=== PATIENT | male | born 1970 | race African-American/Black ===

== ENCOUNTER 2024-02-03 09:05 | Emergency (ER) | payer OTHER ==
[2024-02-03 09:27] VITALS: RESP 18; TEMP 97.8
--- NOTE | 2024-02-03 09:35 | ED ---
General Adult HPI - General Chief complaint: Extremity Injury, Lower Stated complaint: infection Time Seen by Provider: 02/03/24 09:14 Source: patient Mode of arrival: wheelchair Limitations: no limitations - History of Present Illness Initial comments: Dictation was produced using Piktochart dictation software. please excuse any grammatical, word or spelling errors. Chief Complaint: 53-year-old male presents to the emergency department for lower extremity rash and pain History of Present Illness: Patient is a 53-year-old male he went for routine appointment for chronic wound to the right great toe. He has history of left lower extremity amputation. Patient was seen at the wound clinic he was evaluated. Patient complained to wound clinic that he had a painful rash to his posterior distal right thigh. Patient has history of arterial insufficiency being treated and evaluated by vascular surgery. Patient notices painful rash few days ago. Wound clinic doctor wanted to prescribe patient antibiotics and discharged home however patient preferred rather to come to the emergency department for evaluation. Patient Nuys any fever, chills or night sweats. Denies any acute symptoms in his right lower extremity The ROS documented in this emergency department record has been reviewed and confirmed by me. Those systems with pertinent positive or negative responses have been documented in the HPI. All other systems are other negative and/or noncontributory. - Related Data Home Medications Medication Instructions Recorded Confirmed Gabapentin [Neurontin] 400 mg PO TID 02/03/24 02/03/24 INSULIN LISPRO (For Pump) [humaLOG 0.01 units SQ-PUMP CONTINUOUS 02/03/24 02/03/24 (For Pump)] Sodium Chloride 0.9% Irrigatio 1 dose IRRIGATION DAILY 02/03/24 02/03/24 [Saline 0.9% Irrigation Bottle] lisinopriL [Zestril] 40 mg PO DAILY 02/03/24 02/03/24 oxyCODONE HCL [Roxicodone] 5 mg PO BID PRN 02/03/24 02/03/24 Previous Rx's Medication Instructions Recorded Cephalexin [Keflex] 500 mg PO Q6HR 5 Days #20 cap 02/03/24 Allergies Allergy/AdvReac Type Severity Reaction Status Date / Time No Known Allergies Allergy Verified 02/03/24 10:29 Review of Systems ROS Statement: Those systems with pertinent positive or pertinent negative responses have been documented in the HPI. ROS Other: All systems not noted in ROS Statement are negative. Past Medical History Past Medical History: Diabetes Mellitus History of Any Multi-Drug Resistant Organisms: None Reported Additional Past Surgical History / Comment(s): dcrotal rectal abscess i/. Bka left leg. Past Psychological History: No Psychological Hx Reported Smoking Status: Never smoker Past Alcohol Use History: None Reported Past Drug Use History: Marijuana General Exam - General Exam Comments Initial Comments: PHYSICAL EXAM: General Impression: Alert and oriented x3, not in acute distress HEENT: Normocephalic atraumatic, extra-ocular movements intact, pupils equal and reactive to light bilaterally, mucous membranes moist. Cardiovascular: Heart regular rate and rhythm Chest: Able to complete full sentences, no retractions, no tachypnea Abdomen: abdomen soft, non-tender, non-distended, no organomegaly Musculoskeletal: Amputation of the left lower extremity, chronic wound to the right great toe Motor: no focal deficits noted Neurological: CN II-XII grossly intact, no focal motor or sensory deficits noted Skin: I indurated rash measuring approximately 10 x 10 cm over the posterior distal thigh just over the distal attachments of the hamstring, no popliteal pain, no calf pain or calf swelling.. Rash is painful to palpation Psych: Normal affect and mood Limitations: no limitations Course Vital Signs 02/03/24 02/03/24 09:06 09:44 Temperature 97.8 F Pulse Rate 77 79 Respiratory 18 18 Rate Blood Pressure 158/101 163/98 O2 Sat by Pulse 100 99 Oximetry Medical Decision Making - Medical Decision Making Was pt. sent in by a medical professional or institution (, PA, CIGARETTE PACKER, urgent care, hospital, or long term...) When possible be specific @ -No Did you speak to anyone other than the patient for history (EMS, parent, family, police, friend...)? What history was obtained from this source @ -No Did you review nursing and triage notes (agree or disagree)? Why? @ -I reviewed and agree with nursing and triage notes Were old charts reviewed (outside hosp., previous admission, EMS record, old EKG, old radiological studies, urgent care reports/EKG's, long term records)? Report findings @ -No old charts were reviewed Differential Diagnosis (chest pain, altered mental status, abdominal pain women, abdominal pain men, vaginal bleeding, musculoskeletal, weakness, fever, dyspnea, syncope, headache, dizziness, GI bleed, back pain, seizure, CVA, palpa tations, mental health)? @ -Cellulitis, DVT, Sellers's cyst EKG interpreted by me (3pts min.). @ -None done X-rays interpreted by me (1pt min.). @ -None done CT interpreted by me (1pt min.). @ -None done U/S interpreted by me (1pt. min.). @ -Ultrasound lower extremity shows no DVT, no soft tissue abscess What testing was considered but not performed or refused? (CT, X-rays, U/S, labs)? Why? @ -None What meds were considered but not given or refused? Why? @ -None Did you discuss the management of the patient with other professionals (professionals i.e. , PA, CIGARETTE PACKER, lab, RT, psych nurse, geriatric social work professor, night order selector, teacher, major gifts officer, director of casework)? Give summary @ -No Was smoking cessation discussed for >3mins.? @ -No Was critical care preformed (if so, how long)? @ -No Were there social determinants of health that impacted care today? How? (Homelessness, low income, unemployed, alcoholism, drug addiction, transportation, low edu. Level, literacy, decrease access to med. care, long term, rehab)? @ -No Was there de-escalation of care discussed even if they declined (Discuss DNR or withdrawal of care, Hospice)? DNR status @ -No What co-morbidities impacted this encounter? (DM, HTN, Smoking, COPD, CAD, Cancer, CVA, ARF, Chemo, Hep., AIDS, mental health diagnosis, sleep apnea, mo rbid obesity)? @ -None Was patient admitted / discharged? Hospital course, mention meds given and r oute, prescriptions, significant lab abnormalities, going to OR and other pertinent info. @ -53-year-old male presents emergency department with clinical presentation suspicious for skin cellulitis. Vital signs upon arrival are within acceptable limits. Laboratory evaluation obtained. No leukocytosis. CRP within acceptable limits. Patient is hyperglycemic. Patient given insulin. Patient has a history of diabetes mellitus. Patient given prescription for Keflex discharge. Advised close follow-up with primary care doctor. Undiagnosed new problem with uncertain prognosis? @ -No Drug Therapy requiring intensive monitoring for toxicity (Heparin, Nitro, Insulin, Cardizem)? @ -No Were any procedures done? @ -No Diagnosis/symptom? Acute, or Chronic, or Acute on Chronic? Uncomplicated (without systemic symptoms) or Complicated (systemic symptoms)? @ -Cellulitis Side effects of treatment? @ -No Exacerbation, Progression, or Severe Exacerbation? @ -No Poses a threat to life or bodily function? How? (Chest pain, [place], [place], pneumonia, PE, COPD, DKA, ARF, appy, cholecystitis, CVA, Diverticulitis, Homicidal, Suicidal, threat to staff... and all critical care pts) @ -yes - Lab Data Result diagrams: 02/03/24 09:54 02/03/24 09:54 Lab Results 02/03/24 02/03/24 Range/Units 09:54 09:54 WBC 9.3 (3.8-10.6) k/uL RBC 4.08 L (4.30-5.90) m/uL Hgb 12.6 L (13.0-17.5) gm/dL Hct 39.8 (39.0-53.0) % MCV 97.3 (80.0-100.0) fL MCH 30.9 (25.0-35.0) pg MCHC 31.8 (31.0-37.0) g/dL RDW 13.5 (11.5-15.5) % Plt Count 256 (150-450) k/uL MPV 11.2 Neutrophils % 71 % Lymphocytes % 17 % Monocytes % 8 % Eosinophils % 1 % Basophils % 0 % Neutrophils # 6.7 (1.3-7.7) k/uL Lymphocytes # 1.6 (1.0-4.8) k/uL Monocytes # 0.7 (0-1.0) k/uL Eosinophils # 0.1 (0-0.7) k/uL Basophils # 0.0 (0-0.2) k/uL Sodium 131 L (137-145) mmol/L Potassium 4.6 (3.5-5.1) mmol/L Chloride 100 (98-107) mmol/L Carbon Dioxide 27 (22-30) mmol/L Anion Gap 4 mmol/L BUN 22 H (9-20) mg/dL Creatinine 0.91 (0.66-1.25) mg/dL Est GFR (CKD-EPI)AfAm >90 (>60 ml/min/1.73 sqM) Est GFR (CKD-EPI)NonAf >90 (>60 ml/min/1.73 sqM) Glucose 428 H (74-99) mg/dL Calcium 8.5 (8.4-10.2) mg/dL C-Reactive Protein 1.9 H (<1.0) mg/dL Disposition Clinical Impression: Cellulitis Disposition: HOME SELF-CARE Condition: Fair Instructions (If sedation given, give patient instructions): Cellulitis (ED) Prescriptions: Cephalexin [Keflex] 500 mg PO Q6HR 5 Days #20 cap Is patient prescribed a controlled substance at d/c from ED?: No Referrals: Ivet Lui [Primary Care Provider] - 1-2 days Time of Disposition: 12:08
[2024-02-03 10:42] LABS: Basophils % (A) 0 %; Eosinophils # (A) 0.1 k/uL (0-0.7); Eosinophils % (A) 1 %; HCT 39.8 % (39.0-53.0); HGB 12.6 gm/dL (13.0-17.5); Lymphocytes # (A) 1.6 k/uL (1.0-4.8); Lymphocytes % (A) 17 %; MCH 30.9 pg (25.0-35.0); MCHC 31.8 g/dL (31.0-37.0); MCV 97.3 fL (80.0-100.0); Mean Platelet Volume 11.2; Monocytes # (A) 0.7 k/uL (0-1.0); Monocytes % (A) 8 %; Neutrophils # (A) 6.7 k/uL (1.3-7.7); Neutrophils % (A) 71 %; Platelet Count 256 k/uL (150-450); RBC 4.08 m/uL (4.30-5.90); RDW 13.5 % (11.5-15.5); WBC 9.3 k/uL (3.8-10.6)
--- NOTE | 2024-02-03 10:52 | US ---
EXAMINATION TYPE: US extremity nonvascular ltd RT DATE OF EXAM: 02/03/2024 COMPARISON: NONE CLINICAL INDICATION: Male, 53 years old with history of please scan painful area for cellulitis/absce ss; Right leg pain swelling and redness behind knee and back of thigh Edema seen at patient's area of concern IMPRESSION: In the subcutaneous soft tissues, there is edema
--- NOTE | 2024-02-03 10:58 | US ---
EXAMINATION TYPE: US venous doppler duplex LE RT DATE OF EXAM: 02/03/2024 10:23 AM COMPARISON: NONE CLINICAL INDICATION: Male, 53 years old with history of also scan painful area for cellulitis/abscess /DVT; Right leg swelling and redness behind knee and back of thigh SIDE PERFORMED: Right TECHNIQUE: The right lower extremity deep venous system is examined utilizing real time linear array sonography with graded compression, doppler sonography and color-flow sonography. VESSELS IMAGED: Common Femoral Vein Deep Femoral Vein Greater Saphenous Vein * Femoral Vein Popliteal Vein Small Saphenous Vein * Proximal Calf Veins (* superficial vessels) Right Leg: Appears negative for DVT Multiple lymph nodes seen right groin IMPRESSION: Grayscale, color doppler, spectral doppler imaging performed of the deep veins of the lo wer extremities. There is normal flow, compressibility, vascular waveforms. Negative for right lower extremity DVT. Several prominent right inguinal lymph nodes
[2024-02-03 11:08] LABS: African American GFR (CKD) >90 (>60 ml/min/1.73 sqM); Anion Gap 4 mmol/L; Blood Urea Nitrogen 22 mg/dL (9-20); C Reactive Protein 1.9 mg/dL (<1.0); Calcium 8.5 mg/dL (8.4-10.2); Carbon Dioxide 27 mmol/L (22-30); Chloride 100 mmol/L (98-107); Glucose 428 mg/dL (74-99); Non-African American GFR(CKD) >90 (>60 ml/min/1.73 sqM); Potassium 4.6 mmol/L (3.5-5.1); Sodium 131 mmol/L (137-145)
[2024-02-03 12:29] LABS: Glucose,Whole Blood 379 mg/dL (70-110)
[2024-02-03] MEDS: INSULIN REGULAR 100 UNIT/ML VIAL (IV) IV ONE (12:29)
[2024-02-03 13:13] VITALS: BP 147/87; PULSE 78
[2024-02-03 17:21] LABS: Erythrocyte Sedimentation Rate 93 mm/Hr (0-20)
== END 2024-02-03 12:52 | disposition home or self-care (01) ==
LOC: EC 09:05
DX: L03.90 Cellulitis, unspecified (principal)
CPT/HCPCS: 36415; 80048; 85025; 85652; 86140; 96374; 99284

== ENCOUNTER → 2024-02-10 | Outpatient (CLI) | payer OTHER ==
--- NOTE | 2024-02-10 10:18 | XR ---
EXAMINATION TYPE: XR foot complete RT DATE OF EXAM: 02/10/2024 COMPARISON: NONE HISTORY: Swelling TECHNIQUE: Three views are submitted. FINDINGS: Diffuse osteopenia. There is a soft tissue irregularity adjacent to the first digit which could repre sent an area of ulceration. Lucency in all of the cortex of the distal margin proximal phalanx suspic ious for osteomyelitis. No acute fracture. Minimum moderate hypertrophic arthropathy first MTP. Bony density along the medial margin of the cune iform bone likely on the basis of prior trauma. Vascular calcifications are noted. Hammertoe deformit ies and arthropathy of the DIP joint of the second through fifth digits. IMPRESSION: Correlate for cellulitis with possible soft tissue ulcer adjacent to the first digit. Fin dings are suspicious for early osteomyelitis of the proximal phalanx first digit.
== END | disposition home or self-care (01) ==
LOC: RADXRMAIN 09:51
PROVIDERS: ATTEND Family Medicine
DX: M79.89 Other specified soft tissue disorders (principal); E11.621 Type 2 diabetes mellitus with foot ulcer; L97.513 Non-pressure chronic ulcer of other part of right foot with necrosis of muscle; E11.59 Type 2 diabetes mellitus with other circulatory complications; I70.235 Atherosclerosis of native arteries of right leg with ulceration of other part of foot; I96 Gangrene, not elsewhere classified; I82.401 Acute embolism and thrombosis of unspecified deep veins of right lower extremity

== ENCOUNTER → 2024-02-17 | Outpatient (CLI) | payer OTHER ==
[2024-02-17 16:19] LABS: ALT 34 U/L (10-49); AST 25 U/L (14-35); Albumin 3.4 g/dL (3.8-4.9); Albumin/Globulin Ratio 1.26 Ratio (1.60-3.17); Alkaline Phosphatase 402 U/L (41-126); Basophils # (A) 0.06 X 10*3/uL (0.00-0.10); Basophils % (A) 0.8 %; Blood Urea Nitrogen 16.6 mg/dL (9.0-27.0); C Reactive Protein <0.30 mg/dL (0.00-0.80); Calcium 9.2 mg/dL (8.7-10.3); Carbon Dioxide 29.3 mmol/L (21.6-31.8); Chloride 97 mmol/L (96-109); Eosinophils # (A) 0.06 X 10*3/uL (0.04-0.35); Eosinophils % (A) 0.8 %; Globulin 2.7 g/dL (1.6-3.3); Glucose 432 mg/dL (70-110); HCT 39.5 % (39.6-50.0); HGB 12.4 g/dL (13.0-17.0); Lymphocytes # (A) 2.65 X 10*3/uL (0.90-5.00); Lymphocytes % (A) 35.1 %; MCH 29.7 pg (27.0-32.0); MCHC 31.4 g/dL (32.0-37.0); MCV 94.7 FL (80.0-97.0); Mean Platelet Volume 13.9 FL (9.5-12.2); Monocytes % (A) 6.6 %; NRBC Per 100 WBC 0 X 10*3/uL (0.00-0.01); Neutrophils # (A) 4.25 X 10*3/uL (1.80-7.70); Neutrophils % (A) 56.4 %; Platelet Count 215 X 10*3/uL (140-440); Potassium 4.7 mmol/L (3.5-5.5); RBC 4.17 X 10*6/uL (4.40-5.60); RDW 13.1 % (11.5-14.5); Sodium 136 mmol/L (135-145); Total Bilirubin <0.2 mg/dL (0.3-1.2); Total Protein 6.1 g/dL (6.2-8.2); WBC 7.54 X 10*3/uL (4.50-10.00)
[2024-02-17 16:32] LABS: Erythrocyte Sedimentation Rate 31 mm/Hr (0-20)
[2024-02-17 16:44] LABS: Prealbumin 23.9 mg/dL (18.0-42.0)
== END | disposition home or self-care (01) ==
LOC: LABWHC1 10:04
PROVIDERS: ATTEND Family Medicine
DX: E11.621 Type 2 diabetes mellitus with foot ulcer (principal); L97.513 Non-pressure chronic ulcer of other part of right foot with necrosis of muscle; I70.235 Atherosclerosis of native arteries of right leg with ulceration of other part of foot; I96 Gangrene, not elsewhere classified; E11.59 Type 2 diabetes mellitus with other circulatory complications; I82.401 Acute embolism and thrombosis of unspecified deep veins of right lower extremity
CPT/HCPCS: 36415; 80053; 83036; 84134; 85025; 85652; 86140

== ENCOUNTER 2024-03-16 12:06 | Emergency (ER) | payer OTHER ==
[2024-03-16 12:27] VITALS: RESP 18
--- NOTE | 2024-03-16 12:59 | ED ---
Recheck HPI - General Chief Complaint: Recheck/Abnormal Lab/Rx Stated Complaint: Hypertension Time Seen by Provider: 03/16/24 12:28 Source: patient, RN notes reviewed, old records reviewed Mode of arrival: wheelchair Limitations: no limitations - History of Present Illness Initial Comments: This is a 53-year-old male to the ER for evaluation today. Patient presents today for evaluation regards to severely elevated blood pressure. Patient's blood pressure is improving here in the emergency department both in triage and now at bedside, patient has no complaints no headache chest pain shortness of breath abdominal pain. Patient can be given his home medications here in the emergency department MD Complaint: other (Elevated blood pressure) -: unknown Symptoms Since Prior Visit: no new symptoms Context: planned re-check Associated Symptoms: none Treatments Prior to Arrival: other (0) - Related Data Home Medications Medication Instructions Recorded Confirmed Gabapentin [Neurontin] 400 mg PO TID 02/03/24 02/03/24 INSULIN LISPRO (For Pump) [humaLOG 0.01 units SQ-PUMP CONTINUOUS 02/03/24 02/03/24 (For Pump)] Sodium Chloride 0.9% Irrigatio 1 dose IRRIGATION DAILY 02/03/24 02/03/24 [Saline 0.9% Irrigation Bottle] lisinopriL [Zestril] 40 mg PO DAILY 02/03/24 02/03/24 oxyCODONE HCL [Roxicodone] 5 mg PO BID PRN 02/03/24 02/03/24 Previous Rx's Medication Instructions Recorded Cephalexin [Keflex] 500 mg PO Q6HR 5 Days #20 cap 02/03/24 Allergies Allergy/AdvReac Type Severity Reaction Status Date / Time No Known Allergies Allergy Verified 02/03/24 10:29 Review of Systems ROS Statement: Those systems with pertinent positive or pertinent negative responses have been documented in the HPI. ROS Other: All systems not noted in ROS Statement are negative. Past Medical History Past Medical History: Diabetes Mellitus, Hypertension History of Any Multi-Drug Resistant Organisms: None Reported Additional Past Surgical History / Comment(s): dcrotal rectal abscess i/. Bka left leg. Past Psychological History: No Psychological Hx Reported Smoking Status: Never smoker Past Alcohol Use History: None Reported Past Drug Use History: Marijuana General Exam Limitations: no limitations General appearance: alert, in no apparent distress Head exam: Present: atraumatic, normocephalic, normal inspection Eye exam: Present: normal appearance, PERRL, EOMI. Absent: scleral icterus, conjunctival injection, periorbital swelling ENT exam: Present: normal exam, mucous membranes moist Neck exam: Present: normal inspection. Absent: tenderness, meningismus, lymphadenopathy Respiratory exam: Present: normal lung sounds bilaterally. Absent: respiratory distress, wheezes, rales, rhonchi, stridor Cardiovascular Exam: Present: regular rate, normal rhythm, normal heart sounds. Absent: systolic murmur, diastolic murmur, rubs, gallop, clicks GI/Abdominal exam: Present: soft, normal bowel sounds. Absent: distended, tenderness, guarding, rebound, rigid Extremities exam: Present: normal inspection, full ROM, normal capillary refill. Absent: tenderness, pedal edema, joint swelling, calf tenderness Back exam: Present: normal inspection Neurological exam: Present: alert, oriented X3, CN II-XII intact Psychiatric exam: Present: normal affect, normal mood Skin exam: Present: warm, dry, intact, normal color. Absent: rash Course Vital Signs 03/16/24 03/16/24 12:22 13:05 Temperature 98.1 F 98.0 F Pulse Rate 87 88 Respiratory 18 18 Rate Blood Pressure 169/83 161/104 O2 Sat by Pulse 98 100 Oximetry - Reevaluation(s) Reevaluation #1: Medical records reviewed Reevaluation #2: Patient symptoms improving Reevaluation #3: Patient informed of results and questions answered Reevaluation #4: Was pt. sent in by a medical professional or institution (, PA, SOIL FERTILITY EXTENSION SPECIALIST, urgent care, hospital, or shelter...) When possible be specific @ -no Did you speak to anyone other than the patient for history (EMS, parent, family, police, friend...)? What history was obtained from this source @ -no Did you review nursing and triage notes (agree or disagree)? Why? @ -agree Are old charts reviewed (outside hosp., previous admission, EMS record, old EKG, old radiological studies, urgent care reports/EKG's, shelter records)? Report findings @ -yes Differential Diagnosis (chest pain, altered mental status, abdominal pain women, abdominal pain men, vaginal bleeding, weakness, fever, dyspnea, syncope, headache, dizziness, GI bleed, back pain, seizure, CVA, palpatations, mental health, musculoskeletal)? @ -prior EKG interpreted by me (3pts min.). @ -no X-rays interpreted by me (1pt min.). @ -no CT interpreted by me (1pt min.). @ -no U/S interpreted by me (1pt. min.). @ -no What testing was considered but not performed or refused? (CT, X-rays, U/S, labs)? Why? @ -none What meds were considered but not given or refused? Why? @ -none Did you discuss the management of the patient with other professionals (professionals i.e. Dr., PA, SOIL FERTILITY EXTENSION SPECIALIST, lab, RT, psych nurse, social service manager, imaging specialist, teacher, branch officer, telehealth case manager)? Give summary @ -no Was smoking cessation discussed for >3mins.? @ -no Was critical care preformed (if so, how long)? @ -no Were there social determinants of health that impacted care today? How? (Homelessness, low income, unemployed, alcoholism, drug addiction, transportation, low edu. Level, literacy, decrease access to med. care, [facility], rehab)? @ -none Was there de-escalation of care discussed even if they declined (Discuss DNR or withdrawal of care, Hospice)? DNR status @ -no What co-morbidities impacted this encounter? (DM, HTN, Smoking, COPD, CAD, Cancer, CVA, ARF, Chemo, Hep., AIDS, mental health diagnosis, sleep apnea, morbid obesity)? @ -none Was patient admitted / discharged? Hospital course, mention meds given and route, prescriptions, significant lab abnormalities, going to OR and other pertinent info. @ - 53 male for evaluation of outpatient abnormal blood pressure. Patient's blood pressure normalized here in the emergency department, given blood pressure medication here, no complaints of headache chest pain shortness of breath abdominal pain patient can be discharged home Discharge Undiagnosed new problem with uncertain prognosis? @ -no Drug Therapy requiring intensive monitoring for toxicity (Heparin, Nitro, Insulin, Cardizem)? @ -no Were any procedures done? @ -no Diagnosis/symptom? @ -Hypertension Acute, or Chronic, or Acute on Chronic? @ -Acute Uncomplicated (without systemic symptoms) or Complicated (systemic symptoms)? @ -Complicated Side effects of treatment? @ -no Exacerbation, Progression, or Severe Exacerbation? @ -exacerbation Poses a threat to life or bodily function? How? (Chest pain, [place], [place], pneumonia, PE, COPD, DKA, ARF, appy, cholecystitis, CVA, Diverticulitis, Homicidal, Suicidal, threat to staff... and all critical care pts) @ -yes with severe vital sign abnormality Medical Decision Making - Medical Decision Making 53 male for evaluation of outpatient abnormal blood pressure. Patient's blood pressure normalized here in the emergency department, given blood pressure medication here, no complaints of headache chest pain shortness of breath abdominal pain patient can be discharged home Disposition Clinical Impression: Hypertension Disposition: HOME SELF-CARE Condition: Good Instructions (If sedation given, give patient instructions): Hypertension (ED) Is patient prescribed a controlled substance at d/c from ED?: No Referrals: Brodie Vaughn MD [Primary Care Provider] - 1-2 days
[2024-03-16] MEDS: cloNIDine HCL 0.1 MG TAB PO STA (13:04)
[2024-03-16 13:13] VITALS: BP 161/104; PULSE 88; TEMP 98
== END 2024-03-16 13:20 | disposition home or self-care (01) ==
LOC: EC 12:06
DX: I10 Essential (primary) hypertension (principal); Z79.4 Long term (current) use of insulin
CPT/HCPCS: 99283

== ENCOUNTER 2024-04-19 09:25 | Emergency (ER) | payer OTHER ==
[2024-04-19 09:29] VITALS: TEMP 98.2
[2024-04-19] MEDS: LABETALOL 5 MG/ML VIAL MDV IVP STA (09:49)
[2024-04-19 09:59] LABS: Basophils # (A) 0.1 k/uL (0-0.2); Basophils % (A) 1 %; Eosinophils # (A) 0.1 k/uL (0-0.7); Eosinophils % (A) 2 %; HCT 43.2 % (39.0-53.0); HGB 13.6 gm/dL (13.0-17.5); Lymphocytes # (A) 2.1 k/uL (1.0-4.8); Lymphocytes % (A) 29 %; MCH 29.9 pg (25.0-35.0); MCHC 31.5 g/dL (31.0-37.0); MCV 94.8 fL (80.0-100.0); Mean Platelet Volume 10.4; Monocytes # (A) 0.5 k/uL (0-1.0); Monocytes % (A) 6 %; Neutrophils # (A) 4.5 k/uL (1.3-7.7); Neutrophils % (A) 60 %; Platelet Count 257 k/uL (150-450); RBC 4.56 m/uL (4.30-5.90); RDW 14.1 % (11.5-15.5); WBC 7.5 k/uL (3.8-10.6)
--- NOTE | 2024-04-19 10:24 | ED ---
General Adult HPI - General Chief complaint: Recheck/Abnormal Lab/Rx Stated complaint: Hypertension, nausea Time Seen by Provider: 04/19/24 09:30 Source: patient, RN notes reviewed Mode of arrival: ambulatory Limitations: no limitations - History of Present Illness Initial comments: 53-year-old male presents emergency department with chief complaint of h ypertension. Patient went to his hyperbaric chamber treatment and was noted to have hypertension he states he has been out of his lisinopril for 1 week as his PCP moved away. Patient denies any current symptoms including chest pain shortness of breath headache dizziness nausea vomiting. - Related Data Home Medications Medication Instructions Recorded Confirmed Gabapentin [Neurontin] 400 mg PO TID 02/03/24 04/19/24 INSULIN LISPRO (For Pump) [humaLOG 0.01 units SQ-PUMP CONTINUOUS 02/03/24 04/19/24 (For Pump)] lisinopriL [Zestril] 40 mg PO DAILY 02/03/24 04/19/24 oxyCODONE HCL [Roxicodone] 5 mg PO BID PRN 02/03/24 04/19/24 Allergies Allergy/AdvReac Type Severity Reaction Status Date / Time hydromorphone [From Dilaudid] AdvReac Confusion Verified 04/19/24 13:00 Review of Systems ROS Statement: Those systems with pertinent positive or pertinent negative responses have been documented in the HPI. ROS Other: All systems not noted in ROS Statement are negative. Past Medical History Past Medical History: Diabetes Mellitus, Hypertension History of Any Multi-Drug Resistant Organisms: None Reported Additional Past Surgical History / Comment(s): dcrotal rectal abscess i/. Bka left leg. Past Psychological History: No Psychological Hx Reported Smoking Status: Never smoker Past Alcohol Use History: None Reported Past Drug Use History: Marijuana General Exam Limitations: no limitations General appearance: alert, in no apparent distress Head exam: Present: atraumatic, normocephalic, normal inspection Eye exam: Present: normal appearance, PERRL, EOMI. Absent: scleral icterus, conjunctival injection, periorbital swelling ENT exam: Present: normal exam, normal oropharynx, mucous membranes moist Neck exam: Present: normal inspection, full ROM. Absent: tenderness, meningismus, lymphadenopathy Respiratory exam: Present: normal lung sounds bilaterally. Absent: respiratory distress, wheezes, rales, rhonchi, stridor Cardiovascular Exam: Present: regular rate, normal rhythm, normal heart sounds. Absent: systolic murmur, diastolic murmur, rubs, gallop, clicks Course Vital Signs 04/19/24 04/19/24 04/19/24 09:27 10:21 11:39 Temperature 98.2 F Pulse Rate 91 91 102 H Respiratory 18 14 16 Rate Blood Pressure 204/112 225/119 201/104 O2 Sat by Pulse 100 98 100 Oximetry 04/19/24 04/19/24 04/19/24 11:54 12:21 13:11 Temperature Pulse Rate 99 101 H 101 H Respiratory 18 18 16 Rate Blood Pressure 203/110 185/81 162/81 O2 Sat by Pulse 100 100 99 Oximetry EKG Findings - EKG Comments: EKG Findings:: EKG performed at 9: 42 sinus rhythm with short VT rate of 89 VT 117 QRS 85 QT/QTc 359/405 - EKG Results: EKG: interpreted by LORAINED Medical Decision Making - Medical Decision Making Was pt. sent in by a medical professional or institution (SANTANA Santoyo, SCALE MANAGER, urgent care, hospital, or fpc...) When possible be specific @ -Hyperbaric treatment physician Did you speak to anyone other than the patient for history (EMS, parent, family, police, friend...)? What history was obtained from this source @ -No Did you review nursing and triage notes (agree or disagree)? Why? @ -I reviewed and agree with nursing and triage notes Were old charts reviewed (outside hosp., previous admission, EMS record, old EKG, old radiological studies, urgent care reports/EKG's, fpc records)? Report findings @ -No old charts were reviewed Differential Diagnosis (chest pain, altered mental status, abdominal pain women, abdominal pain men, vaginal bleeding, weakness, fever, dyspnea, syncope, headache, dizziness, GI bleed, back pain, seizure, CVA, palpatations, mental health, musculoskeletal)? @ -Hypertension acute kidney injury diabetes EKG interpreted by me (3pts min.). @ -As above X-rays interpreted by me (1pt min.). @ -None done CT interpreted by me (1pt min.). @ -None done U/S interpreted by me (1pt. min.). @ -None done What testing was considered but not performed or refused? (CT, X-rays, U/S, labs)? Why? @ -None What meds were considered but not given or refused? Why? @ -None Did you discuss the management of the patient with other professionals (professionals i.e. , PA, SCALE MANAGER, lab, RT, psych nurse, social work administrator, supervisor game farm, teacher, chief mechanical officer, field nurse case manager)? Give summary @ -No Was smoking cessation discussed for >3mins.? @ -No Was critical care preformed (if so, how long)? @ -No Were there social determinants of health that impacted care today? How? (Home lessness, low income, unemployed, alcoholism, drug addiction, transportation, low edu. Level, literacy, decrease access to med. care, long term, rehab)? @ -No Was there de-escalation of care discussed even if they declined (Discuss DNR or withdrawal of care, Hospice)? DNR status @ -No What co-morbidities impacted this encounter? (DM, HTN, Smoking, COPD, CAD, Cancer, CVA, ARF, Chemo, Hep., AIDS, mental health diagnosis, sleep apnea, morbid obesity)? @ -None Was patient admitted / discharged? Hospital course, mention meds given and route, prescriptions, significant lab abnormalities, going to OR and other pertinent info. @ -Patient has a history of hypertension was out of his medication patient's PCP was contacted and appointment was made medication refills were sent patient was given hydralazine, labetalol in the emergency department. Undiagnosed new problem with uncertain prognosis? @ -No Drug Therapy requiring intensive monitoring for toxicity (Heparin, Nitro, Insulin, Cardizem)? @ -No Were any procedures done? @ -No Diagnosis/symptom? @ -Hypertension, Medication refill Acute, or Chronic, or Acute on Chronic? @ -Acute Uncomplicated (without systemic symptoms) or Complicated (systemic symptoms)? @ -Uncomplicated Side effects of treatment? @ -No Exacerbation, Progression, or Severe Exacerbation? @ -No Poses a threat to life or bodily function? How? (Chest pain, [place], [place], pneumonia, PE, COPD, DKA, ARF, appy, cholecystitis, CVA, Diverticulitis, Homicidal, Suicidal, threat to staff... and all critical care pts) @ -No - Lab Data Result diagrams: 04/19/24 09:55 04/19/24 09:55 Lab Results 04/19/24 04/19/24 Range/Units 09:55 09:55 WBC 7.5 (3.8-10.6) k/uL RBC 4.56 (4.30-5.90) m/uL Hgb 13.6 (13.0-17.5) gm/dL Hct 43.2 (39.0-53.0) % MCV 94.8 (80.0-100.0) fL MCH 29.9 (25.0-35.0) pg MCHC 31.5 (31.0-37.0) g/dL RDW 14.1 (11.5-15.5) % Plt Count 257 (150-450) k/uL MPV 10.4 Neutrophils % 60 % Lymphocytes % 29 % Monocytes % 6 % Eosinophils % 2 % Basophils % 1 % Neutrophils # 4.5 (1.3-7.7) k/uL Lymphocytes # 2.1 (1.0-4.8) k/uL Monocytes # 0.5 (0-1.0) k/uL Eosinophils # 0.1 (0-0.7) k/uL Basophils # 0.1 (0-0.2) k/uL Sodium 135 L (137-145) mmol/L Potassium 4.0 (3.5-5.1) mmol/L Chloride 99 (98-107) mmol/L Carbon Dioxide 29 (22-30) mmol/L Anion Gap 7 mmol/L BUN 33 H (9-20) mg/dL Creatinine 1.17 (0.66-1.25) mg/dL Est GFR (CKD-EPI)AfAm 83 (>60 ml/min/1.73 sqM) Est GFR (CKD-EPI)NonAf 72 (>60 ml/min/1.73 sqM) Glucose 370 H (74-99) mg/dL Calcium 9.1 (8.4-10.2) mg/dL Total Bilirubin 0.3 (0.2-1.3) mg/dL AST 37 (17-59) U/L ALT 30 (4-49) U/L Alkaline Phosphatase 299 H (38-126) U/L Total Protein 7.0 (6.3-8.2) g/dL Albumin 3.8 (3.5-5.0) g/dL Disposition Clinical Impression: Hypertension, Encounter for medication refill, Hyperglycemia Disposition: HOME SELF-CARE Condition: Stable Instructions (If sedation given, give patient instructions): Hypertension (ED) Additional Instructions: Please return to the Emergency Department if symptoms worsen or any other concerns. Is patient prescribed a controlled substance at d/c from ED?: No Referrals: Ivet Lui [Primary Care Provider] - 05/03/24 9:15 am (ENMANUEL Vaughn will be your new provider. Refills of your medications will be sent to [facility] pharmacy on [address] ) Forms: Area PCPs Time of Disposition: 12:33
[2024-04-19 10:25] LABS: ALT 30 U/L (4-49); AST 37 U/L (17-59); African American GFR (CKD) 83 (>60 ml/min/1.73 sqM); Albumin 3.8 g/dL (3.5-5.0); Alkaline Phosphatase 299 U/L (38-126); Anion Gap 7 mmol/L; Blood Urea Nitrogen 33 mg/dL (9-20); Calcium 9.1 mg/dL (8.4-10.2); Carbon Dioxide 29 mmol/L (22-30); Chloride 99 mmol/L (98-107); Glucose 370 mg/dL (74-99); Non-African American GFR(CKD) 72 (>60 ml/min/1.73 sqM); Sodium 135 mmol/L (137-145); Total Bilirubin 0.3 mg/dL (0.2-1.3)
[2024-04-19] MEDS: hydrALAZINE HCL 20 MG/ML 1 ML VIAL IVP STA ×2 (10:53→11:51)
[2024-04-19] MEDS: INSULIN REGULAR 100 UNIT/ML VIAL (IV) IV ONE (10:55)
[2024-04-19 12:22] VITALS: PULSE 101
[2024-04-19] MEDS: ONDANSETRON 4 MG/2 ML VIAL IVP STA (13:05)
[2024-04-19] MEDS: lisinopriL 20 MG TAB PO STA (13:05)
[2024-04-19 13:12] VITALS: BP 162/81; RESP 16
== END 2024-04-19 13:12 | disposition home or self-care (01) ==
LOC: EC 09:25
DX: Z76.0 Encounter for issue of repeat prescription (principal); I10 Essential (primary) hypertension; E78.5 Hyperlipidemia, unspecified; Z79.899 Other long term (current) drug therapy; Z88.8 Allergy status to other drugs, medicaments and biological substances
CPT/HCPCS: 36415; 93005; 80053; 85025; 99284; 96374; 96375 ×2; 96376; J0360; J2405; J1920

== ENCOUNTER 2024-05-09 09:17 | Inpatient (IN) | payer OTHER ==
[2024-05-09] MEDS ORDERED: VANCOMYCIN IV PER PHARMACY 1 EACH MISC MISCELLANE PRN (09:54)
[2024-05-09] MEDS: SODIUM CHLORIDE 0.9% 1,000 ML IV STA (12:04)
[2024-05-09] MEDS: VANCOMYCIN 1,500 MG in SODIUM CHLORIDE 0.9% 500 ML 500 ML IVPB STA (12:04)
[2024-05-09 12:05] LABS: Basophils # (A) 0.1 k/uL (0-0.2); Basophils % (A) 0 %; Eosinophils # (A) 0.2 k/uL (0-0.7); Eosinophils % (A) 2 %; HCT 32.5 % (39.0-53.0); Hypochromasia Slight; Lymphocytes # (A) 1.8 k/uL (1.0-4.8); Lymphocytes % (A) 15 %; MCH 31.3 pg (25.0-35.0); MCHC 32.6 g/dL (31.0-37.0); MCV 96.2 fL (80.0-100.0); Mean Platelet Volume 9.5; Monocytes # (A) 0.8 k/uL (0-1.0); Monocytes % (A) 6 %; Neutrophils % (A) 75 %; Platelet Count 394 k/uL (150-450); RBC 3.38 m/uL (4.30-5.90); RDW 13.8 % (11.5-15.5); WBC 12.1 k/uL (3.8-10.6)
--- NOTE | 2024-05-09 12:16 | ED ---
General Adult HPI - General Chief complaint: Skin/Abscess/Foreign Body Stated complaint: Infection right toe Time Seen by Provider: 05/09/24 09:48 Source: patient, RN/MD, RN notes reviewed, old records reviewed Mode of arrival: ambulatory Limitations: no limitations - History of Present Illness Initial comments: Patient is a 53-year-old male with past medical history remarkable for left lower extremity amputation, diabetes, hypertension, who presents emergency department complaining of right toe infection. I was notified by his infectious disease doctor at wound care clinic Dr. Stubbs who wanted him admitted on IV antibiotics and evaluated by vascular surgery. Does have a history of amputation excuse me of the left lower extremity however is now having findings concerning for either ischemic changes or infectious changes to the right big toe. It is black. This painful. Surrounding erythema. Still has movement. Still some sensation. Has been like this for at least a few days. Did not pharmacy picking tech his antibiotics after initial prescription was sent. Presents for admission. - Related Data Home Medications Medication Instructions Recorded Confirmed Gabapentin [Neurontin] 400 mg PO TID 02/03/24 05/09/24 INSULIN LISPRO (For Pump) [humaLOG 0.01 units SQ-PUMP CONTINUOUS 02/03/24 05/09/24 (For Pump)] lisinopriL [Zestril] 40 mg PO DAILY 02/03/24 05/09/24 oxyCODONE HCL [Roxicodone] 5 mg PO BID PRN 02/03/24 05/09/24 Amoxic-Pot Clav 875-125Mg 1 tab PO BID 05/09/24 05/09/24 [Augmentin 875-125] Allergies Allergy/AdvReac Type Severity Reaction Status Date / Time hydromorphone [From Dilaudid] AdvReac Confusion Verified 05/09/24 10:14 Review of Systems ROS Statement: Those systems with pertinent positive or pertinent negative responses have been documented in the HPI. Review of Systems: CONST: Denies fever EYES: Denies blurry vision ENT: Denies nasal congestion C/V: Denies Chest pain RESP: Denies shortness of breath GI: Denies abdominal pain : Denies dysuria SKIN: Endorses right great toe infection MSK: Denies joint pain. NEURO: Denies headache ROS Other: All systems not noted in ROS Statement are negative. Past Medical History Past Medical History: Diabetes Mellitus, Hypertension History of Any Multi-Drug Resistant Organisms: None Reported Additional Past Surgical History / Comment(s): dcrotal rectal abscess i/. Bka left leg. Past Psychological History: No Psychological Hx Reported Smoking Status: Never smoker Past Alcohol Use History: None Reported Past Drug Use History: Marijuana General Exam - General Exam Comments Initial Comments: General: Appears in no acute distress. HEAD: Normal with no signs of head trauma. EYES: PERRLA, EOMI, conjunctiva normal, no discharge. ENT: Hearing grossly intact, normal oropharynx. RESPIRATORY: Clear breath sounds bilaterally. No wheezes, rales, or rhonchi. C/V: Regular rate and rhythm. S1 and S2 auscultated, no edema, peripheral pulses 2+ and intact throughout ABD: Abd is soft, nontender, nondistended EXT: Left lower extremity amputation. Right great toe is black. Normal range of motion. Wound on the dorsal aspect with some purulent drainage. Concern for infectious etiology versus ischemic. SKIN: Right great toe findings described above. NEURO: Alert and oriented x 4. Limitations: no limitations Course Vital Signs 05/09/24 05/09/24 09:18 12:01 Temperature 97.9 F 98.0 F Pulse Rate 88 81 Respiratory 18 18 Rate Blood Pressure 166/93 156/96 O2 Sat by Pulse 98 98 Oximetry Medical Decision Making - Medical Decision Making Was pt. sent in by a medical professional or institution (SANTANA Santoyo, SPOKE MAKER, urgent care, hospital, or prison...) When possible be specific @ -I discussed with Dr. Stubbs who sent the patient in for admission for IV antibiotics. Did you speak to anyone other than the patient for history (EMS, parent, family, police, friend...)? What history was obtained from this source @ -No Did you review nursing and triage notes (agree or disagree)? Why? @ -I reviewed and agree with nursing and triage notes Were old charts reviewed (outside hosp., previous admission, EMS record, old EKG, old radiological studies, urgent care reports/EKG's, prison records)? Report findings @ -Reviewed our EMR for prior past medical history. Differential Diagnosis (chest pain, altered mental status, abdominal pain women, abdominal pain men, vaginal bleeding, weakness, fever, dyspnea, syncope, headache, dizziness, GI bleed, back pain, seizure, CVA, palpatations, mental health, musculoskeletal)? @ -Differential Musculoskeletal Muscular strain, contusion, ligament sprain, fracture, arthritis, septic arthrit is, bursitis, cellulitis, muscle spasm, nerve compression, DVT, arterial occlusion, herpes zoster, electrolyte abnormality, tumor.... This is not meant to be in all inclusive list EKG interpreted by me (3pts min.). @ -None done X-rays interpreted by me (1pt min.). @ -No evidence of osteomyelitis on foot x-ray CT interpreted by me (1pt min.). @ -None done U/S interpreted by me (1pt. min.). @ -None done What testing was considered but not performed or refused? (CT, X-rays, U/S, labs)? Why? @ -None What meds were considered but not given or refused? Why? @ -None Did you discuss the management of the patient with other professionals (professionals i.e. DrElmer, PA, SPOKE MAKER, lab, RT, psych nurse, neonatal social worker, forcer maker, teacher, liaison officer, immigration case worker)? Give summary @ -Discussed with Dr. Stubbs who called ahead for the patient to be admitted on IV antibiotics, evaluation by vascular surgery, as well as evaluation by infectious disease. Spoke with the admitting provider, Dr. Tejeda who accepted the admission. Was smoking cessation discussed for >3mins.? @ -No Was critical care preformed (if so, how long)? @ -No Were there social determinants of health that impacted care today? How? (Homelessness, low income, unemployed, alcoholism, drug addiction, transportation, low edu. Level, literacy, decrease access to med. care, half-way, rehab)? @ -No Was there de-escalation of care discussed even if they declined (Discuss DNR or withdrawal of care, Hospice)? DNR status @ -No What co-morbidities impacted this encounter? (DM, HTN, Smoking, COPD, CAD, Cancer, CVA, ARF, Chemo, Hep., AIDS, mental health diagnosis, sleep apnea, morbid obesity)? @ -Diabetes Was patient admitted / discharged? Hospital course, mention meds given and route, prescriptions, significant lab abnormalities, going to OR and other pertinent info. @ -Patient presents with right great toe wound versus ischemic process. Patient empirically started on vancomycin after wound cultures and blood cultures obtained. Will obtain basic labs. Patient will be admitted to the hospital. He was in agreement this plan. Vital signs within acceptable limits. States he is up-to-date on tetanus. Patient's labs remarkable for hyperglycemia which she is receiving IV fluids 4. Alk phos is elevated likely secondary to the infectious process. Patient is mildly anemic with hemoglobin 10.6. White blood cell count is elevated at 12.1. Foot x-ray reveals no evidence of osteomyelitis. At this time, I did recommend admission. Patient was in agreement this plan. Will continue with plan for vancomycin, vascular surgery consult, infectious disease consult. Patient in agreement this plan. I spoke with the admitting physician, Dr. Tejeda of [facility] who accepted the admission. Undiagnosed new problem with uncertain prognosis? @ -No Drug Therapy requiring intensive monitoring for toxicity (Heparin, Nitro, Insulin, Cardizem)? @ -No Were any procedures done? @ -No Diagnosis/symptom? @ -Right great toe wound, hyperglycemia in the setting of poorly controlled diabetes Acute, or Chronic, or Acute on Chronic? @ -Acute Uncomplicated (without systemic symptoms) or Complicated (systemic symptoms)? @ -Complicated Side effects of treatment? @ -None Exacerbation, Progression, or Severe Exacerbation] @ -No Poses a threat to life or bodily function? @ -Yes - Lab Data Result diagrams: 05/09/24 11:48 05/09/24 11:48 Lab Results 05/09/24 05/09/24 05/09/24 Range/Units 11:48 11:48 11:48 WBC 12.1 H (3.8-10.6) k/uL RBC 3.38 L (4.30-5.90) m/uL Hgb 10.6 L D (13.0-17.5) gm/dL Hct 32.5 L (39.0-53.0) % MCV 96.2 (80.0-100.0) fL MCH 31.3 (25.0-35.0) pg MCHC 32.6 (31.0-37.0) g/dL RDW 13.8 (11.5-15.5) % Plt Count 394 (150-450) k/uL MPV 9.5 Neutrophils % 75 % Lymphocytes % 15 % Monocytes % 6 % Eosinophils % 2 % Basophils % 0 % Neutrophils # 9.0 H (1.3-7.7) k/uL Lymphocytes # 1.8 (1.0-4.8) k/uL Monocytes # 0.8 (0-1.0) k/uL Eosinophils # 0.2 (0-0.7) k/uL Basophils # 0.1 (0-0.2) k/uL Hypochromasia Slight Sodium 131 L (137-145) mmol/L Potassium 5.0 (3.5-5.1) mmol/L Chloride 99 (98-107) mmol/L Carbon Dioxide 26 (22-30) mmol/L Anion Gap 6 mmol/L BUN 26 H (9-20) mg/dL Creatinine 0.89 (0.66-1.25) mg/dL Est GFR (CKD-EPI)AfAm >90 (>60 ml/min/1.73 sqM) Est GFR (CKD-EPI)NonAf >90 (>60 ml/min/1.73 sqM) Glucose 554 H* (74-99) mg/dL Plasma Lactic Acid Jam 0.7 (0.7-2.0) mmol/L Calcium 8.8 (8.4-10.2) mg/dL Total Bilirubin 0.3 (0.2-1.3) mg/dL AST 36 (17-59) U/L ALT 33 (4-49) U/L Alkaline Phosphatase 666 H (38-126) U/L Total Protein 5.9 L (6.3-8.2) g/dL Albumin 2.8 L (3.5-5.0) g/dL Disposition Clinical Impression: Wound, open, foot, Hyperglycemia Disposition: ADMITTED IP TO THIS HOSP Condition: Stable Referrals: Ivet Lui [Primary Care Provider] - 1-2 days Time of Disposition: 12:44
--- NOTE | 2024-05-09 12:18 | XR ---
EXAMINATION TYPE: XR foot limited RT DATE OF EXAM: 05/09/2024 10:41 AM CLINICAL INDICATION:Male, 53 years old with history of eval for osteomyelitis; [facility] COMPARISON: 02/10/2024 TECHNIQUE: XR foot limited RT examined in the AP, oblique, and lateral projections. FINDINGS: Soft tissue swelling without evidence of subcutaneous gas or erosion to suggest osteomyelitis. No conchis dence of any acute osseous pathology. Calcaneal Achilles enthesophyte. Multifocal degeneration change s throughout the joints of the foot with osteophyte formation and joint space narrowing. Atherosclero sis of the arterial vasculature. IMPRESSION: 1. Soft tissue swelling without evidence for osseous erosion to suggest osteomyelitis. No evidence o f acute fracture. 2. Moderate degeneration changes throughout the joints of the foot.
[2024-05-09 12:25] LABS: ALT 33 U/L (4-49); AST 36 U/L (17-59); African American GFR (CKD) >90 (>60 ml/min/1.73 sqM); Albumin 2.8 g/dL (3.5-5.0); Alkaline Phosphatase 666 U/L (38-126); Anion Gap 6 mmol/L; Blood Urea Nitrogen 26 mg/dL (9-20); Calcium 8.8 mg/dL (8.4-10.2); Carbon Dioxide 26 mmol/L (22-30); Chloride 99 mmol/L (98-107); Non-African American GFR(CKD) >90 (>60 ml/min/1.73 sqM); Sodium 131 mmol/L (137-145); Total Bilirubin 0.3 mg/dL (0.2-1.3); Total Protein 5.9 g/dL (6.3-8.2)
[2024-05-09 12:27] LABS: Glucose 554 mg/dL (74-99); HGB 10.6 gm/dL (13.0-17.5)
[2024-05-09] MEDS ORDERED: NALOXONE 0.4 MG/ML 1 ML VIAL IV PRN (12:44)
[2024-05-09] MEDS: SODIUM CHLORIDE 0.9% 1,000 ML IV SCH (13:13)
[2024-05-09 13:38] LABS: Glucose,Whole Blood 464 mg/dL (70-110)
[2024-05-09] MEDS: BACITRACIN OINT 1 EACH PACKET TOPICAL ONE (13:49)
[2024-05-09] MEDS ORDERED: DEXTROSE 50% SYRINGE 50 ML IVP PRN ×2 (14:02)
[2024-05-09] MEDS: BACITRACIN ZINC 500 UNIT/GM OINT 28.4 GM TUBE TOPICAL ONE (14:20)
[2024-05-09 14:25] LABS: Glucose,Whole Blood 424 mg/dL (70-110)
[2024-05-09] MEDS: INSULIN ASPART (NovoLOG) 100 UNIT/ML VIAL SQ ONE (14:29)
--- NOTE | 2024-05-09 15:33 | P.GSCN ---
History of Present Illness Consult date: 05/09/24 Reason for Consult: Right foot wound Requesting physician: Alvarado Mayo History of present illness: This a pleasant 53-year-old male with a history of hypertension, diabetes mellitus, and nonhealing diabetic wounds with a history of a left dfbaa-uox-qwan amputation approximately a year ago. He has a wound to his right great toe that he has had for several months and has been following with the wound clinic get ting HBO therapy. He states he went today and they were concerned the way his toe looked and he was sent to the emergency department for further evaluation and consult to infectious disease and vascular surgery. States he does have some discomfort to the top of his foot. He does not follow with a vascular surgeon and has not followed with vascular surgery and from [facility] from his prior amputation. Denies any shortness of breath, chest pain, abdominal pain, nausea or vomiting fevers or chills. Review of Systems A 14 point review systems was completed all pertinent positives and negatives as stated in the HPI. Past Medical History Past Medical History: Diabetes Mellitus, Hypertension History of Any Multi-Drug Resistant Organisms: None Reported Additional Past Surgical History / Comment(s): dcrotal rectal abscess i/. Bka left leg. Past Psychological History: No Psychological Hx Reported Smoking Status: Never smoker Past Alcohol Use History: None Reported Past Drug Use History: Marijuana Medications and Allergies Home Medications Medication Instructions Recorded Confirmed Type Gabapentin [Neurontin] 400 mg PO TID 02/03/24 05/09/24 History INSULIN LISPRO (For Pump) [humaLOG 0.01 units SQ-PUMP CONTINUOUS 02/03/24 05/09/24 History (For Pump)] lisinopriL [Zestril] 40 mg PO DAILY 02/03/24 05/09/24 History oxyCODONE HCL [Roxicodone] 5 mg PO BID PRN 02/03/24 05/09/24 History Amoxic-Pot Clav 875-125Mg 1 tab PO BID 05/09/24 05/09/24 History [Augmentin 875-125] Allergies Allergy/AdvReac Type Severity Reaction Status Date / Time hydromorphone [From Dilaudid] AdvReac Confusion Verified 05/09/24 10:14 Surgical - Exam Vital Signs Temp Pulse Resp BP Pulse Ox 97.9 F 88 18 166/93 98 05/09/24 09:18 05/09/24 09:18 05/09/24 09:18 05/09/24 09:18 05/09/24 09:18 General appearance: The patient is alert, oriented, appears in no acute distress. HET: Head is normocephalic and atraumatic. Pupils are equal and reactive. Neck: Supple. Heart: Regular. Lungs: Equal expansion, normal respiratory effort. Abdomen: Soft, nontender, nondistended. Extremities: Left vmtgj-sht-qvkt amputation well-healed. Right lower extremity with palpable femoral pulse, lower extremity edema, cellulitis to right foot, great toe wound with dry gangrene. Positive DP and PT Doppler signal. Neurological: No focal deficits. Strength and sensation are grossly intact. Results - Labs 05/09/24 11:48 05/09/24 11:48 Abnormal Lab Results - Last 24 Hours (Table) 05/09/24 05/09/24 05/09/24 Range/Units 11:48 11:48 13:34 WBC 12.1 H (3.8-10.6) k/uL RBC 3.38 L (4.30-5.90) m/uL Hgb 10.6 L D (13.0-17.5) gm/dL Hct 32.5 L (39.0-53.0) % Neutrophils # 9.0 H (1.3-7.7) k/uL Sodium 131 L (137-145) mmol/L BUN 26 H (9-20) mg/dL Glucose 554 H* (74-99) mg/dL POC Glucose (mg/dL) 464 H (70-110) mg/dL Alkaline Phosphatase 666 H (38-126) U/L Total Protein 5.9 L (6.3-8.2) g/dL Albumin 2.8 L (3.5-5.0) g/dL 05/09/24 Range/Units 14:22 WBC (3.8-10.6) k/uL RBC (4.30-5.90) m/uL Hgb (13.0-17.5) gm/dL Hct (39.0-53.0) % Neutrophils # (1.3-7.7) k/uL Sodium (137-145) mmol/L BUN (9-20) mg/dL Glucose (74-99) mg/dL POC Glucose (mg/dL) 424 H (70-110) mg/dL Alkaline Phosphatase (38-126) U/L Total Protein (6.3-8.2) g/dL Albumin (3.5-5.0) g/dL Diabetes panel 05/09/24 Range/Units 11:48 Sodium 131 L (137-145) mmol/L Potassium 5.0 (3.5-5.1) mmol/L Chloride 99 (98-107) mmol/L Carbon Dioxide 26 (22-30) mmol/L BUN 26 H (9-20) mg/dL Creatinine 0.89 (0.66-1.25) mg/dL Glucose 554 H* (74-99) mg/dL Calcium 8.8 (8.4-10.2) mg/dL AST 36 (17-59) U/L ALT 33 (4-49) U/L Alkaline Phosphatase 666 H (38-126) U/L Total Protein 5.9 L (6.3-8.2) g/dL Albumin 2.8 L (3.5-5.0) g/dL Calcium panel 05/09/24 Range/Units 11:48 Calcium 8.8 (8.4-10.2) mg/dL Albumin 2.8 L (3.5-5.0) g/dL Pituitary panel 05/09/24 Range/Units 11:48 Sodium 131 L (137-145) mmol/L Potassium 5.0 (3.5-5.1) mmol/L Chloride 99 (98-107) mmol/L Carbon Dioxide 26 (22-30) mmol/L BUN 26 H (9-20) mg/dL Creatinine 0.89 (0.66-1.25) mg/dL Glucose 554 H* (74-99) mg/dL Calcium 8.8 (8.4-10.2) mg/dL Adrenal panel 05/09/24 Range/Units 11:48 Sodium 131 L (137-145) mmol/L Potassium 5.0 (3.5-5.1) mmol/L Chloride 99 (98-107) mmol/L Carbon Dioxide 26 (22-30) mmol/L BUN 26 H (9-20) mg/dL Creatinine 0.89 (0.66-1.25) mg/dL Glucose 554 H* (74-99) mg/dL Calcium 8.8 (8.4-10.2) mg/dL Total Bilirubin 0.3 (0.2-1.3) mg/dL AST 36 (17-59) U/L ALT 33 (4-49) U/L Alkaline Phosphatase 666 H (38-126) U/L Total Protein 5.9 L (6.3-8.2) g/dL Albumin 2.8 L (3.5-5.0) g/dL - Imaging Comments: Right foot x-ray reports soft tissue swelling without evidence for osseous erosion to suggest osteomyelitis. No evidence of acute fracture. Moderate degeneration changes throughout the joints of the foot. Assessment and Plan Assessment: 1. Nonhealing right great toe diabetic gangrenous wound 2. Diabetes mellitus 3. History of infected left lower extremity wound status post left nvlik-[id number] amputation Plan: 1. Antibiotics per recommendations from infectious disease 2. Arterial ultrasound of the lower extremity ordered 3. Further recommendations forthcoming per vascular surgeon Thank you for this consultation, we will continue to follow. The impression and plan of care has been dictated as directed. I performed a history and examination of this patient, discussed the same with the dictator. I agree with the dictator's note ,documented as a scribe. Any additional findings or plans will be noted.
[2024-05-09 15:57] LABS: Glucose,Whole Blood 406 mg/dL (70-110)
[2024-05-09] MEDS: HEPARIN SODIUM,PORCINE 5,000 UNIT/ML 1 ML VIAL SQ SCH (15:57)
[2024-05-09] MEDS: GABAPENTIN 400 MG CAP PO SCH (15:57)
[2024-05-09] MEDS ORDERED: MUPIROCIN 2% OINT 22 GM TUBE TOPICAL SCH (16:00)
--- NOTE | 2024-05-09 16:35 | US ---
EXAMINATION TYPE: US arterial LE multi level DATE OF EXAM: 05/09/2024 3:36 PM CLINICAL INDICATION: Male, 53 years old with history of Nonhealing wound to right great toe; History of: Smoker: No Hypertension: Yes Diabetic: Yes Hyperlipidemia: Yes TIA/CVA: No Previous Vascular Surgery: No CAD: No SC: No Vascular Ulcers: Right Claudication: Yes Gangrene: Yes Doppler Waveforms: Right: Able to hear, unable to get proper waveforms, ?Monophasic Left: Postsurgical amputation Pulse Volume Recording: NA Pressure Gradients: NA Right Brachial Pressure: 156 Left Brachial Pressure: 150 Ankle-Brachial Indices: Right: Not able to obtain Left: NA - amputated (Vessel hardening > 1.4; Normal 0.9 - 1.4, Moderate 0.7 - 0.9, Severe 0.5-0.7) Toe Brachial Indices: Right: Not able to obtain Left: NA IMPRESSION: Incomplete exam. Unable to get proper waveforms. No ankle brachial indices calculated
[2024-05-09] MEDS: INSULIN LISPRO (For Pump) 100 UNIT/ML VIAL SQ-PUMP SCH (16:37)
[2024-05-09 17:51] LABS: Glucose,Whole Blood 346 mg/dL (70-110)
[2024-05-09] MEDS: INSULIN ASPART (NovoLOG) 100 UNIT/ML VIAL SQ SCH ×3 (18:11→21:49)
[2024-05-09] MEDS: VANCOMYCIN 1,500 MG in SODIUM CHLORIDE 0.9% 500 ML 500 ML IVPB SCH (20:48)
[2024-05-09 20:54] LABS: Glucose,Whole Blood 343 mg/dL (70-110)
[2024-05-09] MEDS: INSULIN DETEMIR (LEVEMIR) 100 UNIT/ML SYR SQ SCH (21:50)
--- NOTE | 2024-05-09 22:31 | P.CONS ---
History of Present Illness - Reason for Consult Consult date: 05/09/24 Right foot wound Requesting physician: Alvarado Mayo - Chief Complaint Right big toe wound and discoloration x days - History of Present Illness Patient is a 53-year-old -[place] male with a past medical history negative for diabetes mellitus and hypertension patient did have a previous history of left diabetic foot wound requiring left lbgiy-mal-jdxj amputation about a year ago patient recently had developed a wound to his right big toe with the patient has been following at [facility] wound care center patient mention his wound was debrided last and over the weekend he noticed to having a increasing swelling some foul-smelling drainage and he was unable to take his sock off from the left foot patient apparently was evaluated wound care center today and he was noted to have significant necrotic changes to the left big toe for the patient was advised to go to the hospital patient denies high-grade fever or any chills patient did have diabetic neuropathy hands denies significant pain to the left big toe area which is currently discolored with an ulceration and mention having some foul-smelling drainage on presentation the hospital the patient was afebrile and no fever have recorded subsequently patient did have white count of 12.1 creatinine 0.89 liver isms are normal patient was started on vancomycin infectious disease was consulted for further management of antibiotic therapy local cultures obtained which are currently pending, review his culture data and the patient did grow Klebsiella strep and anaerobe on 04/20/2024 patient not very clear if he has received an antibiotic for it Review of Systems Positive point and negatives has been mentioned in the HPI, complete review of systems was performed and all other systems are negative Past Medical History Past Medical History: Diabetes Mellitus, Hypertension History of Any Multi-Drug Resistant Organisms: None Reported Additional Past Surgical History / Comment(s): dcrotal rectal abscess i/. Bka left leg. Past Psychological History: No Psychological Hx Reported Smoking Status: Never smoker Past Alcohol Use History: None Reported Past Drug Use History: Marijuana Medications and Allergies Home Medications Medication Instructions Recorded Confirmed Type Gabapentin [Neurontin] 400 mg PO TID 02/03/24 05/09/24 History INSULIN LISPRO (For Pump) [humaLOG 0.01 units SQ-PUMP CONTINUOUS 02/03/24 05/09/24 History (For Pump)] lisinopriL [Zestril] 40 mg PO DAILY 02/03/24 05/09/24 History oxyCODONE HCL [Roxicodone] 5 mg PO BID PRN 02/03/24 05/09/24 History Amoxic-Pot Clav 875-125Mg 1 tab PO BID 05/09/24 05/09/24 History [Augmentin 875-125] Allergies Allergy/AdvReac Type Severity Reaction Status Date / Time hydromorphone [From Dilaudid] AdvReac Confusion Verified 05/09/24 10:14 Physical Exam Vitals: Vital Signs Temp Pulse Resp BP Pulse Ox 05/09/24 12:01 98.0 F 81 18 156/96 98 05/09/24 09:18 97.9 F 88 18 166/93 98 Intake and Output 05/09/24 05/09/24 05/09/24 06:59 14:59 22:59 Other: Weight 77.564 kg GENERAL DESCRIPTION: Middle-aged male lying in bed, no distress. No tachypnea or accessory muscle of respiration use. HEENT: Shows Pallor , no scleral icterus. Oral mucous membrane is dry. No pharyngeal erythema or thrush NECK: Trachea central, no thyromegaly. LUNGS: Unlabored breathing. Clear to auscultation anteriorly. No wheeze or crackle. HEART: S1, S2, regular rate and rhythm. No loud murmur ABDOMEN: Soft, no tenderness , guarding or rigidity, no organomegaly EXTREMITIES: No edema of feet. Right big toe with some necrotic changes swelling redness some foul smell SKIN: No rash, no masses palpable. NEUROLOGICAL: The patient is awake, alert, oriented x3, mood and affect normal. Results CBC & Chem 7: 05/13/24 07:01 05/13/24 06:57 Labs: Abnormal Lab Results - Last 24 Hours (Table) 05/09/24 05/09/24 05/09/24 Range/Units 11:48 11:48 13:34 WBC 12.1 H (3.8-10.6) k/uL RBC 3.38 L (4.30-5.90) m/uL Hgb 10.6 L D (13.0-17.5) gm/dL Hct 32.5 L (39.0-53.0) % Neutrophils # 9.0 H (1.3-7.7) k/uL Sodium 131 L (137-145) mmol/L BUN 26 H (9-20) mg/dL Glucose 554 H* (74-99) mg/dL POC Glucose (mg/dL) 464 H (70-110) mg/dL Alkaline Phosphatase 666 H (38-126) U/L Total Protein 5.9 L (6.3-8.2) g/dL Albumin 2.8 L (3.5-5.0) g/dL 05/09/24 Range/Units 14:22 WBC (3.8-10.6) k/uL RBC (4.30-5.90) m/uL Hgb (13.0-17.5) gm/dL Hct (39.0-53.0) % Neutrophils # (1.3-7.7) k/uL Sodium (137-145) mmol/L BUN (9-20) mg/dL Glucose (74-99) mg/dL POC Glucose (mg/dL) 424 H (70-110) mg/dL Alkaline Phosphatase (38-126) U/L Total Protein (6.3-8.2) g/dL Albumin (3.5-5.0) g/dL Assessment and Plan (1) Ulcer of right foot due to type 2 diabetes mellitus Status: Acute Code(s): E11.621 - TYPE 2 DIABETES MELLITUS WITH FOOT ULCER; L97 .519 - NON-PRS CHRONIC ULCER OTH PRT RIGHT FOOT W UNSP SEVERITY SNOMED Code(s): 28760429476330856 (2) Cellulitis of great toe, right Status: Acute Code(s): L03.031 - CELLULITIS OF RIGHT TOE SNOMED Code(s): 39617256808968 Plan: 1patient presented hospital with Right big toe diabetic foot infection in this patient who did have some necrotic changes and patient has been dealing with this also for couple of weeks noticed to have recent worsening with recent outpatient culture positive for Klebsiella and strep and anaerobe 2-we will discontinue vancomycin 3-start the patient on Zosyn 3.375 g every 8 hours We will follow on clinical condition and cultures to further adjust medication if needed Thank you for this consultation we will follow the patient along with you Dictation was produced using [employer] dictation software. please excuse any grammatical, word or spelling errors. Time with Patient: Greater than 30
[2024-05-10] MEDS: PIPERACILLIN-TAZOBACTAM 3.375 GM in SODIUM CHLORIDE 0.9% 100 ML IVPB SCH (00:12)
--- NOTE | 2024-05-10 00:59 | P.HPIM ---
History of Present Illness H&P Date: 05/09/24 Chief Complaint: Foot infection Patient is a 53-year-old male with a known history of hypertension, diabetes type 2 on insulin pump and history of left AKA and marijuana use was sent from wound care clinic for IV antibiotics. Patient was sent to hospital due to right toe infection. Patient was on outpatient antibiotic course with Augmentin. Patient noticed to having discoloration of the toes and discharge. Also worsening pain and surrounding redness. 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 X-ray of the foot showed soft tissue swelling without evidence for osseous erosion to suggest osteomyelitis. No evidence of acute fracture. Moderate degeneration changes throughout the joints of the foot. Laboratory data showed WBC 12.1 hemoglobin 10.6 and platelets 394, sodium 131 potassium 5.0 chloride 99 bicarb is 26 BUN 26 and creatinine 0.89 and blood sugar 554. Albumin 2.8 and alk phos 666 Review of Systems Constitutional: Patient denies any fever or chills . No generalized weakness or weight loss. Abdomen: Patient denied nausea vomiting and diarrhea and abdominal pain. Cardiovascular: Patient denies any chest pain or short of breath no palpitations. Respiratory: patient denied any cough or sputum production. No shortness of breath Neurologic: Patient denied any numbness or tingling. no headache. Musculoskeletal: Patient denies any complaints of joint swelling or deformity. Skin: Negative Psychiatric: Negative Endocrine: No heat or cold intolerance. No recent weight gain. Genitourinary: No dysuria or hematuria. All other 14 point ROS negative except the above Past Medical History Past Medical History: Diabetes Mellitus, Hypertension History of Any Multi-Drug Resistant Organisms: None Reported Additional Past Surgical History / Comment(s): dcrotal rectal abscess i/. Bka left leg. Past Psychological History: No Psychological Hx Reported Smoking Status: Never smoker Past Alcohol Use History: None Reported Past Drug Use History: Marijuana Medications and Allergies Home Medications Medication Instructions Recorded Confirmed Type Gabapentin [Neurontin] 400 mg PO TID 02/03/24 05/09/24 History INSULIN LISPRO (For Pump) [humaLOG 0.01 units SQ-PUMP CONTINUOUS 02/03/24 05/09/24 History (For Pump)] lisinopriL [Zestril] 40 mg PO DAILY 02/03/24 05/09/24 History oxyCODONE HCL [Roxicodone] 5 mg PO BID PRN 02/03/24 05/09/24 History Amoxic-Pot Clav 875-125Mg 1 tab PO BID 05/09/24 05/09/24 History [Augmentin 875-125] Allergies Allergy/AdvReac Type Severity Reaction Status Date / Time hydromorphone [From Dilaudid] AdvReac Confusion Verified 05/09/24 10:14 Physical Exam Vitals: Vital Signs Temp Pulse Resp BP Pulse Ox 05/09/24 12:01 98.0 F 81 18 156/96 98 05/09/24 09:18 97.9 F 88 18 166/93 98 Intake and Output 05/08/24 05/09/24 05/09/24 22:59 06:59 14:59 Other: Weight 77.564 kg PHYSICAL EXAMINATION: Patient is lying in the bed comfortably, no acute distress, awake alert and oriented.. HEENT: Normocephalic. Neck is supple. Pupils reactive. Nostrils clear. Oral cavity is moist. Neck reveals no JVD, carotid bruits, or thyromegaly. CHEST EXAMINATION: Trachea is central. Symmetrical expansion. Lung redd clear to auscultation and percussion. CARDIAC: Normal S1, S2 with no gallops. No murmurs ABDOMEN: Soft. Bowel sounds normal. No organomegaly. No abdominal bruits. Extremities: Left AKA. Right great toe dark discoloration with ulcer with pur ulent discharge.. No clubbing or cyanosis Neurologically awake, alert, oriented x3 with well-coordinated movements. No focal deficits noted Skin: No rash or skin lesions. Psychiatric: Coperative. Nonsuicidal Musculoskeletal: No joint swelling or deformity. Normal range of motion. Results CBC & Chem 7: 05/10/24 06:28 05/10/24 06:28 Labs: Abnormal Lab Results - Last 24 Hours (Table) 05/09/24 05/09/24 05/09/24 Range/Units 11:48 11:48 13:34 WBC 12.1 H (3.8-10.6) k/uL RBC 3.38 L (4.30-5.90) m/uL Hgb 10.6 L D (13.0-17.5) gm/dL Hct 32.5 L (39.0-53.0) % Neutrophils # 9.0 H (1.3-7.7) k/uL Sodium 131 L (137-145) mmol/L BUN 26 H (9-20) mg/dL Glucose 554 H* (74-99) mg/dL POC Glucose (mg/dL) 464 H (70-110) mg/dL Alkaline Phosphatase 666 H (38-126) U/L Total Protein 5.9 L (6.3-8.2) g/dL Albumin 2.8 L (3.5-5.0) g/dL 05/09/24 Range/Units 14:22 WBC (3.8-10.6) k/uL RBC (4.30-5.90) m/uL Hgb (13.0-17.5) gm/dL Hct (39.0-53.0) % Neutrophils # (1.3-7.7) k/uL Sodium (137-145) mmol/L BUN (9-20) mg/dL Glucose (74-99) mg/dL POC Glucose (mg/dL) 424 H (70-110) mg/dL Alkaline Phosphatase (38-126) U/L Total Protein (6.3-8.2) g/dL Albumin (3.5-5.0) g/dL Thrombosis Risk Factor Assmnt - DVT/VTE Prophylaxis DVT/VTE Prophylaxis: Pharmacologic Prophylaxis ordered Assessment and Plan Assessment: Right great toe gangrenous nonhealing ulcer. 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 Hyperglycemia with uncontrolled diabetes on insulin pump at home DVT prophylaxis Plan: Patient will be continued on antibiotics and pain management. Continue with insulin regimen and sliding scale for better blood sugar control. Patient is on insulin pump at home. Vascular surgery and ID consult. Continue to follow closely. Time with Patient: Greater than 30
[2024-05-10 06:08] LABS: Glucose,Whole Blood 137 mg/dL (70-110)
[2024-05-10] MEDS: lisinopriL 20 MG TAB PO SCH (08:52)
[2024-05-10 10:43] LABS: Basophils # (A) 0.06 X 10*3/uL (0.00-0.10); Basophils % (A) 0.6 %; Eosinophils # (A) 0.09 X 10*3/uL (0.04-0.35); Eosinophils % (A) 0.9 %; HCT 33.1 % (39.6-50.0); HGB 10.7 g/dL (13.0-17.0); Lymphocytes # (A) 2.61 X 10*3/uL (0.90-5.00); Lymphocytes % (A) 26.3 %; MCH 29.8 pg (27.0-32.0); MCHC 32.3 g/dL (32.0-37.0); MCV 92.2 FL (80.0-97.0); Monocytes # (A) 0.95 X 10*3/uL (0.20-1.00); Monocytes % (A) 9.6 %; NRBC Per 100 WBC 0 X 10*3/uL (0.00-0.01); Neutrophils # (A) 6.16 X 10*3/uL (1.80-7.70); Platelet Count 368 X 10*3/uL (140-440); RBC 3.59 X 10*6/uL (4.40-5.60); RDW 13.1 % (11.5-14.5); WBC 9.93 X 10*3/uL (4.50-10.00)
[2024-05-10 10:55] LABS: ALT 29 U/L (10-49); AST 26 U/L (14-35); Albumin 2.7 g/dL (3.8-4.9); Albumin/Globulin Ratio 0.84 Ratio (1.60-3.17); Alkaline Phosphatase 548 U/L (41-126); BUN/Creat Ratio 19.33 Ratio (12.00-20.00); Blood Urea Nitrogen 17.4 mg/dL (9.0-27.0); Calcium 8.7 mg/dL (8.7-10.3); Chloride 102 mmol/L (96-109); Globulin 3.2 g/dL (1.6-3.3); Glucose 103 mg/dL (70-110); Potassium 4.5 mmol/L (3.5-5.5); Sodium 138 mmol/L (135-145); Total Bilirubin <0.2 mg/dL (0.3-1.2); Total Protein 5.9 g/dL (6.2-8.2)
[2024-05-10 11:14] LABS: Glucose,Whole Blood 201 mg/dL (70-110)
--- NOTE | 2024-05-10 12:26 | P.PN ---
Subjective Progress Note Date: 05/10/24 Principal diagnosis: Right great toe wound Patient seen and examined today as a follow-up. No acute changes through the night. He denies any fevers or chills. He had his arterial duplex which they reported as nondiagnostic however waveforms were biphasic. Patient currently on IV Zosyn Objective - Vital Signs Vital signs: Vital Signs Temp 98.3 F 05/10/24 07:11 Pulse 78 05/10/24 07:11 Resp 16 05/10/24 07:11 BP 166/94 05/10/24 07:11 Pulse Ox 100 05/10/24 07:11 FiO2 Intake & Output 05/09/24 05/10/24 05/10/24 18:59 06:59 18:59 Output Total 1300 Balance -1300 Weight 77.564 kg 77.564 kg Output: Urine 1300 Other: Voiding Method Urinal - Exam General appearance: The patient is alert, oriented, appears in no acute distress. HET: Head is normocephalic and atraumatic. Neck: Supple. Abdomen: Soft, nondistended. Extremities: Left ggzby-oof-xaji amputation well-healed. Right foot with dressing clean dry and intact. Neurological: No focal deficits. Strength and sensation are grossly intact. - Labs CBC & Chem 7: 05/10/24 06:28 05/10/24 06:28 Labs: Abnormal Lab Results - Last 24 Hours (Table) 05/09/24 05/09/24 05/09/24 Range/Units 11:48 11:48 13:34 WBC 12.1 H (3.8-10.6) k/uL RBC 3.38 L (4.30-5.90) m/uL Hgb 10.6 L D (13.0-17.5) gm/dL Hct 32.5 L (39.0-53.0) % Neutrophils # 9.0 H (1.3-7.7) k/uL Sodium 131 L (137-145) mmol/L BUN 26 H (9-20) mg/dL Glucose 554 H* (74-99) mg/dL POC Glucose (mg/dL) 464 H (70-110) mg/dL Alkaline Phosphatase 666 H (38-126) U/L Total Protein 5.9 L (6.3-8.2) g/dL Albumin 2.8 L (3.5-5.0) g/dL 05/09/24 05/09/24 05/09/24 Range/Units 14:22 15:56 17:50 WBC (3.8-10.6) k/uL RBC (4.30-5.90) m/uL Hgb (13.0-17.5) gm/dL Hct (39.0-53.0) % Neutrophils # (1.3-7.7) k/uL Sodium (137-145) mmol/L BUN (9-20) mg/dL Glucose (74-99) mg/dL POC Glucose (mg/dL) 424 H 406 H 346 H (70-110) mg/dL Alkaline Phosphatase (38-126) U/L Total Protein (6.3-8.2) g/dL Albumin (3.5-5.0) g/dL 05/09/24 05/10/24 Range/Units 20:53 06:07 WBC (3.8-10.6) k/uL RBC (4.30-5.90) m/uL Hgb (13.0-17.5) gm/dL Hct (39.0-53.0) % Neutrophils # (1.3-7.7) k/uL Sodium (137-145) mmol/L BUN (9-20) mg/dL Glucose (74-99) mg/dL POC Glucose (mg/dL) 343 H 137 H (70-110) mg/dL Alkaline Phosphatase (38-126) U/L Total Protein (6.3-8.2) g/dL Albumin (3.5-5.0) g/dL Microbiology - Last 24 Hours (Table) 05/09/24 11:48 Gram Stain - Preliminary Toe - Right First Assessment and Plan Assessment: 1. Nonhealing right great toe diabetic gangrenous wound 2. Diabetes mellitus 3. History of infected left lower extremity wound status post left yvdyq-xxr-psqg amputation Plan: 1. Antibiotics per recommendations from infectious disease 2. Arterial ultrasound of the lower extremity ordered and reviewed 3. Hold morning dose of heparin 4. N.p.o. after midnight 5. Patient is scheduled for right great toe debridement possible amputation tomorrow Thank you for this consultation, we will continue to follow. The impression and plan of care has been dictated as directed. Dr. Funes I performed a history and examination of this patient, discussed the same with the dictator. I agree with the dictator's note ,documented as a scribe. Any additional findings or plans will be noted.
--- NOTE | 2024-05-10 12:38 | P.PN ---
Subjective Progress Note Date: 05/10/24 Principal diagnosis: Reason for follow-up is right big toe diabetic foot ulcer and infection Patient is a 53-year-old -[place] male with a past medical history negative for diabetes mellitus and hypertension patient did have a previous history of left diabetic foot wound requiring left sntzv-cnk-ayfw amputation about a year ago patient recently had developed a wound to his right big toe, presented to hospital worsening swelling redness and drainage. On today's evaluation that is 05/10/2024, patient has been afebrile, patient is breathing comfortably and is currently on room air, patient denies having any significant cough no chest pain shortness of breath, patient denies nausea vomiting or diarrhea and no abdominal pain and denies any worsening pain to the right big toe. Patient white count is normalized to 9.93, creatinine 0.9 cultures currently growing Klebsiella and Streptococcus agalactiae Objective - Vital Signs Vital signs: Vital Signs Temp 98.3 F 05/10/24 07:11 Pulse 78 05/10/24 07:11 Resp 16 05/10/24 07:11 BP 166/94 05/10/24 07:11 Pulse Ox 100 05/10/24 07:11 FiO2 Intake & Output 05/09/24 05/10/24 05/10/24 18:59 06:59 18:59 Output Total 1300 Balance -1300 Weight 77.564 kg 77.564 kg Output: Urine 1300 Other: Voiding Method Urinal Urinal - Exam GENERAL DESCRIPTION: Middle-age male lying in bed in no distress RESPIRATORY SYSTEM: Unlabored breathing , decreased breath sounds at bases HEART: S1 S2 regular rate and rhythm , ABDOMEN: Soft , no tenderness EXTREMITIES: Right big toe is currently dressed - Labs CBC & Chem 7: 05/10/24 06:28 05/10/24 06:28 Labs: Abnormal Lab Results - Last 24 Hours (Table) 05/09/24 05/09/24 05/09/24 Range/Units 13:34 14:22 15:56 RBC (4.40-5.60) X 10*6/uL Hgb (13.0-17.0) g/dL Hct (39.6-50.0) % MPV (9.5-12.2) FL Immature Gran # (0.00-0.04) X 10*3/uL POC Glucose (mg/dL) 464 H 424 H 406 H (70-110) mg/dL Hemoglobin A1c (<=6.0) % Total Bilirubin (0.3-1.2) mg/dL Alkaline Phosphatase (41-126) U/L Total Protein (6.2-8.2) g/dL Albumin (3.8-4.9) g/dL Albumin/Globulin Ratio (1.60-3.17) Ratio 05/09/24 05/09/24 05/10/24 Range/Units 17:50 20:53 06:07 RBC (4.40-5.60) X 10*6/uL Hgb (13.0-17.0) g/dL Hct (39.6-50.0) % MPV (9.5-12.2) FL Immature Gran # (0.00-0.04) X 10*3/uL POC Glucose (mg/dL) 346 H 343 H 137 H (70-110) mg/dL Hemoglobin A1c (<=6.0) % Total Bilirubin (0.3-1.2) mg/dL Alkaline Phosphatase (41-126) U/L Total Protein (6.2-8.2) g/dL Albumin (3.8-4.9) g/dL Albumin/Globulin Ratio (1.60-3.17) Ratio 05/10/24 05/10/24 05/10/24 Range/Units 06:28 06:28 06:28 RBC 3.59 L (4.40-5.60) X 10*6/uL Hgb 10.7 L (13.0-17.0) g/dL Hct 33.1 L (39.6-50.0) % MPV 13.0 H (9.5-12.2) FL Immature Gran # 0.06 H (0.00-0.04) X 10*3/uL POC Glucose (mg/dL) (70-110) mg/dL Hemoglobin A1c 14.3 H (<=6.0) % Total Bilirubin <0.2 L (0.3-1.2) mg/dL Alkaline Phosphatase 548 H (41-126) U/L Total Protein 5.9 L (6.2-8.2) g/dL Albumin 2.7 L (3.8-4.9) g/dL Albumin/Globulin Ratio 0.84 L (1.60-3.17) Ratio 05/10/24 Range/Units 11:13 RBC (4.40-5.60) X 10*6/uL Hgb (13.0-17.0) g/dL Hct (39.6-50.0) % MPV (9.5-12.2) FL Immature Gran # (0.00-0.04) X 10*3/uL POC Glucose (mg/dL) 201 H (70-110) mg/dL Hemoglobin A1c (<=6.0) % Total Bilirubin (0.3-1.2) mg/dL Alkaline Phosphatase (41-126) U/L Total Protein (6.2-8.2) g/dL Albumin (3.8-4.9) g/dL Albumin/Globulin Ratio (1.60-3.17) Ratio Microbiology - Last 24 Hours (Table) 05/09/24 11:48 Gram Stain - Preliminary Toe - Right First Wound Culture - Preliminary Klebsiella oxytoca Strep agalactiae - (group b) Assessment and Plan (1) Ulcer of right foot due to type 2 diabetes mellitus Current Visit: Yes Status: Acute Code(s): E11.621 - TYPE 2 DIABETES MELLITUS WITH FOOT ULCER; L97.519 - NON-PRS CHRONIC ULCER OTH PRT RIGHT FOOT W UNSP SEVERITY SNOMED Code(s): 23466354406650389 (2) Cellulitis of great toe, right Current Visit: Yes Status: Acute Code(s): L03.031 - CELLULITIS OF RIGHT TOE SNOMED Code(s): 83594630539319 Plan: 1patient presented hospital with Right big toe diabetic foot infection in this patient who did have some necrotic changes and patient has been dealing with this also for couple of weeks noticed to have recent worsening with recent outpatient culture positive for Klebsiella and strep and anaerobe, culture this admission is growing Klebsiella and Streptococcus 2-patient to continue with Zosyn 3.375 g every 8 hours, plan is for possible debridement versus amputation tomorrow per vascular surgery of the right big toe Dictation was produced using [employer] dictation software. please excuse any grammatical, word or spelling errors. Time with Patient: Less than 30
[2024-05-10 16:16] LABS: Glucose,Whole Blood 289 mg/dL (70-110)
[2024-05-10 20:34] LABS: Glucose,Whole Blood 248 mg/dL (70-110)
[2024-05-10] MEDS: ACETAMINOPHEN TAB 325 MG TAB PO PRN (21:46)
[2024-05-11 06:07] LABS: Glucose,Whole Blood 193 mg/dL (70-110)
[2024-05-11 07:34] LABS: Basophils # (A) 0.1 k/uL (0-0.2); Basophils % (A) 1 %; Eosinophils # (A) 0.1 k/uL (0-0.7); Eosinophils % (A) 1 %; HCT 35.3 % (39.0-53.0); HGB 11.1 gm/dL (13.0-17.5); Hypochromasia Moderate; Lymphocytes # (A) 2.2 k/uL (1.0-4.8); Lymphocytes % (A) 27 %; MCH 30.4 pg (25.0-35.0); MCHC 31.5 g/dL (31.0-37.0); MCV 96.5 fL (80.0-100.0); Mean Platelet Volume 10.3; Monocytes # (A) 0.6 k/uL (0-1.0); Monocytes % (A) 7 %; Neutrophils # (A) 4.9 k/uL (1.3-7.7); Neutrophils % (A) 62 %; Platelet Count 358 k/uL (150-450); RBC 3.66 m/uL (4.30-5.90); RDW 13.7 % (11.5-15.5); WBC 7.9 k/uL (3.8-10.6)
[2024-05-11] MEDS: IV FLUID CONTINUATION 1,000 ML IV ONE ×3 (08:21→11:40)
[2024-05-11] MEDS ORDERED: HYDROmorphone 0.5 MG/0.5 ML SYRINGE IVP PRN (08:28)
[2024-05-11] MEDS: ONDANSETRON 4 MG/2 ML VIAL IVP ONE (08:53)
[2024-05-11] MEDS: DEXAMETHASONE SOD PHOSPHATE 4 MG/ML 1 ML VIAL IV ONE (08:53)
[2024-05-11] MEDS ORDERED: PHENYLEPHRINE-0.9% NACL SYG 1,000 MCG/10 ML SYRINGE ONE (09:49)
[2024-05-11] MEDS ORDERED: fentaNYL (PF) 50 MCG/ML 2 ML AMP ONE (09:49)
[2024-05-11] MEDS ORDERED: MIDAZOLAM 2 MG/2 ML VIAL ONE (09:49)
[2024-05-11] MEDS ORDERED: PROPOFOL 10 MG/ML 20 ML VIAL IV ONE (09:49)
[2024-05-11] MEDS ORDERED: LIDOCAINE 1% INJ 10MG/ML (20 ML MDV) ONE (09:49)
--- NOTE | 2024-05-11 10:30 | P.OP ---
Date of Procedure: 05/11/24 Description of Procedure: SURGEON: Clemencia Funes DO RESEARCH ADVISOR: None PREOPERATIVE DIAGNOSIS: [Right great toe diabetic foot infection, gangrene]. POSTOPERATIVE DIAGNOSIS: [Same]. OPERATION: Right great toe amputation. ANESTHESIA: General LMA ESTIMATED BLOOD LOSS: 5 cc SPECIMENS REMOVED: Right great toe for disposal COMPLICATIONS: None immediately Clinical note: Patient is a 53-year-old diabetic male with a longstanding history of a right great toe wound who has been seeing wound care utilizing hyp erbarics in the past few days had significant changes with infection and gangrene of his toe. Due to this recommendation was for return amputation Risk and benefits were discussed. He seemingly understood and was willing to proceed. DESCRIPTION OF PROCEDURE: This patient was brought to the operating room, anesthesia via general LMA was induced. The operative foot was prepped and draped in sterile manner. An incision was made at the base of the great toe to allow for excision of all the gangrenous tissue. It was deepened through skin and fascia on plantar and dorsal aspect until we reached the head of the metatarsal bone.. The head of the metatarsal was from the great toe. The tendons were divided in plantar and dorsal aspects. The great toe was removed. The metatarsal head was rongeured. Base of the wound looked clean, and the wound was copiously irrigated with saline.Hemostasis was well controlled and pressure Dakin's wet-to-dry dressing was applied. The patient tolerated the procedure well.
[2024-05-11] MEDS: fentaNYL (PF) 50 MCG/ML 2 ML AMP IVP PRN (10:37)
[2024-05-11 11:03] LABS: Calcium 8.3 mg/dL (8.7-10.3); Carbon Dioxide 25.3 mmol/L (21.6-31.8); Chloride 103 mmol/L (96-109); Glucose 170 mg/dL (70-110); Potassium 4.5 mmol/L (3.5-5.5); Sodium 138 mmol/L (135-145)
[2024-05-11 11:32] LABS: Glucose,Whole Blood 117 mg/dL (70-110)
[2024-05-11 11:50] LABS: Glucose,Whole Blood 120 mg/dL (70-110)
[2024-05-11] MEDS: LACTATED RINGERS 1,000 ML IV SCH (11:54)
[2024-05-11 11:56] VITALS: BMI 26.7
[2024-05-11 16:41] LABS: Glucose,Whole Blood 301 mg/dL (70-110)
--- NOTE | 2024-05-11 21:10 | P.PN ---
Subjective Progress Note Date: 05/11/24 Principal diagnosis: Reason for follow-up is right big toe diabetic foot ulcer and infection Patient is a 53-year-old -[place] male with a past medical history negative for diabetes mellitus and hypertension patient did have a previous history of left diabetic foot wound requiring left gudtp-eyc-uhka amputation about a year ago patient recently had developed a wound to his right big toe, presented to hospital worsening swelling redness and drainage.patient is s/p rig ht big toe amputation completed by vascular surgery on 05/11/2024. On today's evaluation that is 05/11/2024, Patient is afebrile this morning patient denies having any chest pain shortness of breath or cough, the patient is breathing comfortably and currently on room air, patient denies any abdominal pain no diarrhea no nausea no vomiting denies any worsening pain to the amputation site. Patient white count 7.8, creatinine 1.0 blood culture positive for Klebsiella sensitive to Zosyn along with strep and Prevotella Objective - Vital Signs Vital signs: Vital Signs Temp 98 F 05/11/24 08:47 Pulse 74 05/11/24 11:37 Resp 12 05/11/24 11:37 BP 166/94 05/11/24 11:37 Pulse Ox 100 05/11/24 11:37 FiO2 Intake & Output 05/10/24 05/11/24 05/11/24 18:59 06:59 18:59 Intake Total 1600 Output Total 250 5 Balance -250 1595 Weight 77.564 kg Intake: IV 1600 Output: Urine 250 Estimated Blood Loss 5 Other: Voiding Method Urinal Urinal # Voids 2 - Exam GENERAL DESCRIPTION: Middle-age male lying in bed in no distress RESPIRATORY SYSTEM: Unlabored breathing , decreased breath sounds at bases HEART: S1 S2 regular rate and rhythm , ABDOMEN: Soft , no tenderness EXTREMITIES: Right big toe amputation site is currently dressed - Labs CBC & Chem 7: 05/11/24 06:31 05/11/24 06:34 Labs: Abnormal Lab Results - Last 24 Hours (Table) 05/10/24 05/10/24 05/11/24 Range/Units 16:08 20:32 06:06 RBC (4.30-5.90) m/uL Hgb (13.0-17.5) gm/dL Hct (39.0-53.0) % Glucose (70-110) mg/dL POC Glucose (mg/dL) 289 H 248 H 193 H (70-110) mg/dL Calcium (8.7-10.3) mg/dL 05/11/24 05/11/24 05/11/24 Range/Units 06:31 06:34 11:31 RBC 3.66 L (4.30-5.90) m/uL Hgb 11.1 L (13.0-17.5) gm/dL Hct 35.3 L (39.0-53.0) % Glucose 170 H (70-110) mg/dL POC Glucose (mg/dL) 117 H (70-110) mg/dL Calcium 8.3 L (8.7-10.3) mg/dL 05/11/24 Range/Units 11:49 RBC (4.30-5.90) m/uL Hgb (13.0-17.5) gm/dL Hct (39.0-53.0) % Glucose (70-110) mg/dL POC Glucose (mg/dL) 120 H (70-110) mg/dL Calcium (8.7-10.3) mg/dL Microbiology - Last 24 Hours (Table) 05/09/24 11:48 Gram Stain - Final Toe - Right First Wound Culture - Final Klebsiella oxytoca Strep agalactiae - (group b) 05/09/24 12:00 Blood Culture - Preliminary Blood 05/09/24 11:45 Blood Culture - Preliminary Blood Assessment and Plan (1) Ulcer of right foot due to type 2 diabetes mellitus Current Visit: Yes Status: Acute Code(s): E11.621 - TYPE 2 DIABETES MELLITUS WITH FOOT ULCER; L97.519 - NON-PRS CHRONIC ULCER OTH PRT RIGHT FOOT W UNSP SEVERITY SNOMED Code(s): 52935398360575962 (2) Cellulitis of great toe, right Current Visit: Yes Status: Acute Code(s): L03.031 - CELLULITIS OF RIGHT TOE SNOMED Code(s): 03118244806275 Plan: 1patient presented hospital with Right big toe diabetic foot infection in this patient who did have some necrotic changes and patient has been dealing with this also for couple of weeks noticed to have recent worsening with recent outpatient culture positive for Klebsiella and strep and anaerobe, culture this admission is growing Klebsiella and Streptococcus 2-patient is status post right big toe amputation for now continue with Zosyn 3.375 g every 8 hours, and monitor clinical course closely Dictation was produced using [employer] dictation software. please excuse any grammatical, word or spelling errors. Time with Patient: Less than 30
[2024-05-11 21:36] LABS: Glucose,Whole Blood 283 mg/dL (70-110)
[2024-05-12 06:16] LABS: Glucose,Whole Blood 133 mg/dL (70-110)
[2024-05-12 11:19] LABS: Glucose,Whole Blood 177 mg/dL (70-110)
--- NOTE | 2024-05-12 13:49 | P.PN ---
Subjective Progress Note Date: 05/12/24 Principal diagnosis: Right great toe wound Patient seen and examined today as a follow-up. He is postop day #1 for right great toe amputation. States pain has been well-managed. Denies any fevers or chills. Patient has been afebrile. Objective - Vital Signs Vital signs: Vital Signs Temp 98.5 F 05/12/24 07:29 Pulse 87 05/12/24 07:29 Resp 15 05/12/24 07:29 BP 188/101 05/12/24 07:29 Pulse Ox 100 05/12/24 07:29 FiO2 Intake & Output 05/11/24 05/12/24 05/12/24 18:59 06:59 18:59 Intake Total 1600 Output Total 505 1675 Balance 1095 -1675 Weight 77.564 kg Intake: IV 1600 Output: Urine 500 1675 Estimated Blood Loss 5 Other: Voiding Method Urinal - Exam General appearance: The patient is alert, oriented, appears in no acute distress. HET: Head is normocephalic and atraumatic. Neck: Supple. Abdomen: Soft, nondistended. Extremities: Left vtquu-snz-ftrd amputation well-healed. Right foot great toe amputation site with minimal bleeding, no purulent drainage or foul odor. Redressed with Dakin's wet-to-dry dressing. Neurological: No focal deficits. Strength and sensation are grossly intact. - Labs CBC & Chem 7: 05/11/24 06:31 05/11/24 06:34 Labs: Abnormal Lab Results - Last 24 Hours (Table) 05/11/24 05/11/24 05/11/24 Range/Units 06:34 11:31 11:49 Glucose 170 H (70-110) mg/dL POC Glucose (mg/dL) 117 H 120 H (70-110) mg/dL Calcium 8.3 L (8.7-10.3) mg/dL 05/11/24 05/11/24 05/12/24 Range/Units 16:39 21:35 06:15 Glucose (70-110) mg/dL POC Glucose (mg/dL) 301 H 283 H 133 H (70-110) mg/dL Calcium (8.7-10.3) mg/dL Microbiology - Last 24 Hours (Table) 05/11/24 10:13 Gram Stain - Preliminary Toe - Right First 05/09/24 12:00 Blood Culture - Preliminary Blood 05/09/24 11:45 Blood Culture - Preliminary Blood 05/09/24 11:48 Anaerobic Culture - Preliminary Toe - Right First Prevotella melaninogenica 05/09/24 11:48 Gram Stain - Final Toe - Right First Wound Culture - Final Klebsiella oxytoca Strep agalactiae - (group b) Assessment and Plan Assessment: 1. Nonhealing right great toe diabetic gangrenous wound status post amputation 2. Diabetes mellitus 3. History of infected left lower extremity wound status post left above-the- knee amputation Plan: 1. Daily dressing change with Dakin's wet-to-dry, wrapped with Kerlix and secured with tape 2. Offload pressure to right ball of foot and heel walk only 3. Consult to physical therapy 4. Recommend returning back to wound clinic for local wound care 5. Patient is cleared from vascular surgery for discharge. He has to follow-up with Dr. Funes in 2 weeks Thank you for this consultation, we will sign off at this time. The impression and plan of care has been dictated as directed. I performed a history and examination of this patient, discussed the same with the dictator. I agree with the dictator's note ,documented as a scribe. Any additional findings or plans will be noted.
[2024-05-12 16:31] LABS: Glucose,Whole Blood 285 mg/dL (70-110)
[2024-05-12 20:50] LABS: Glucose,Whole Blood 313 mg/dL (70-110)
--- NOTE | 2024-05-13 01:59 | P.PN ---
Subjective Progress Note Date: 05/10/24 Patient is a 53-year-old male with a known history of hypertension, diabetes type 2 on insulin pump and history of left AKA and marijuana use was sent from wound care clinic for IV antibiotics. Patient was sent to hospital due to right toe infection. Patient was on outpatient antibiotic course with Augmentin. Patient noticed to having discoloration of the toes and discharge. Also worsening pain and surrounding redness. Patient was not able to picker tender his prescription when the initial prescription was sent. X-ray of the foot showed soft tissue swelling without evidence for osseous erosion to suggest osteomyelitis. No evidence of acute fracture. Moderate degeneration changes throughout the joints of the foot. Laboratory data showed WBC 12.1 hemoglobin 10.6 and platelets 394, sodium 131 potassium 5.0 chloride 99 bicarb is 26 BUN 26 and creatinine 0.89 and blood sugar 554. Albumin 2.8 and alk phos 666 05/10/2024 Patient is lying in the bed. Awake alert and oriented x 3. Currently on room air. No complaints of chest pain or shortness of breath. Denies any worsening pain of the right great toe. Continued on IV antibiotics. Cultures are growing Klebsiella and Streptococcus agalactiae. Laboratory data showed WBC 9.9 hemoglobin 10.7 and platelets 368 sodium 138 potassium 4.5 chloride 102 bicarb is 26 BUN 17.4 and creatinine 0.9 and A1c 14.3 alk phos 548 and albumin 2.7. Patient is being continued on Zosyn. ID and vascular surgery is on board. Current medications reviewed. Objective - Vital Signs Vital signs: Vital Signs Temp 98.5 F 05/10/24 13:15 Pulse 85 05/10/24 13:15 Resp 16 05/10/24 13:15 BP 153/89 05/10/24 13:15 Pulse Ox 99 05/10/24 13:15 FiO2 Intake & Output 05/09/24 05/10/24 05/10/24 18:59 06:59 18:59 Output Total 1300 Balance -1300 Weight 77.564 kg 77.564 kg Output: Urine 1300 Other: Voiding Method Urinal Urinal - Exam PHYSICAL EXAMINATION: Patient is lying in the bed comfortably, no acute distress, awake alert and oriented.. HEENT: Normocephalic. Neck is supple. Pupils reactive. Nostrils clear. Oral cavity is moist. Neck reveals no JVD, carotid bruits, or thyromegaly. CHEST EXAMINATION: Trachea is central. Symmetrical expansion. Lung redd clear to auscultation and percussion. CARDIAC: Normal S1, S2 with no gallops. No murmurs ABDOMEN: Soft. Bowel sounds normal. No organomegaly. No abdominal bruits. Extremities: Left AKA. Right great toe is wrapped... No clubbing or cyanosis Neurologically awake, alert, oriented x3 with well-coordinated movements. No focal deficits noted Skin: No rash or skin lesions. Psychiatric: Coperative. Nonsuicidal Musculoskeletal: No joint swelling or deformity. Normal range of motion. - Labs CBC & Chem 7: 05/11/24 06:31 05/11/24 06:34 Labs: Abnormal Lab Results - Last 24 Hours (Table) 05/09/24 05/09/24 05/10/24 Range/Units 17:50 20:53 06:07 RBC (4.40-5.60) X 10*6/uL Hgb (13.0-17.0) g/dL Hct (39.6-50.0) % MPV (9.5-12.2) FL Immature Gran # (0.00-0.04) X 10*3/uL POC Glucose (mg/dL) 346 H 343 H 137 H (70-110) mg/dL Hemoglobin A1c (<=6.0) % Total Bilirubin (0.3-1.2) mg/dL Alkaline Phosphatase (41-126) U/L Total Protein (6.2-8.2) g/dL Albumin (3.8-4.9) g/dL Albumin/Globulin Ratio (1.60-3.17) Ratio 05/10/24 05/10/24 05/10/24 Range/Units 06:28 06:28 06:28 RBC 3.59 L (4.40-5.60) X 10*6/uL Hgb 10.7 L (13.0-17.0) g/dL Hct 33.1 L (39.6-50.0) % MPV 13.0 H (9.5-12.2) FL Immature Gran # 0.06 H (0.00-0.04) X 10*3/uL POC Glucose (mg/dL) (70-110) mg/dL Hemoglobin A1c 14.3 H (<=6.0) % Total Bilirubin <0.2 L (0.3-1.2) mg/dL Alkaline Phosphatase 548 H (41-126) U/L Total Protein 5.9 L (6.2-8.2) g/dL Albumin 2.7 L (3.8-4.9) g/dL Albumin/Globulin Ratio 0.84 L (1.60-3.17) Ratio 05/10/24 05/10/24 Range/Units 11:13 16:08 RBC (4.40-5.60) X 10*6/uL Hgb (13.0-17.0) g/dL Hct (39.6-50.0) % MPV (9.5-12.2) FL Immature Gran # (0.00-0.04) X 10*3/uL POC Glucose (mg/dL) 201 H 289 H (70-110) mg/dL Hemoglobin A1c (<=6.0) % Total Bilirubin (0.3-1.2) mg/dL Alkaline Phosphatase (41-126) U/L Total Protein (6.2-8.2) g/dL Albumin (3.8-4.9) g/dL Albumin/Globulin Ratio (1.60-3.17) Ratio Microbiology - Last 24 Hours (Table) 05/09/24 11:48 Gram Stain - Preliminary Toe - Right First Wound Culture - Preliminary Klebsiella oxytoca Strep agalactiae - (group b) Assessment and Plan Assessment: Right great toe gangrenous nonhealing ulcer. 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 Hyperglycemia with uncontrolled diabetes on insulin pump at home DVT prophylaxis Plan: Patient will be continued on antibiotics and pain management. Wound culture growing Klebsiella and strep agalactiae. Patient is being continued on IV Zosyn. Continue with insulin regimen and sliding scale for better blood sugar control. Patient is on insulin pump at home. Vascular surgery and ID is on board. Vascular surgery is planning for debridement versus amputation tomorrow. Continue to follow closely. Time with Patient: Greater than 30
--- NOTE | 2024-05-13 02:05 | P.PN ---
Subjective Progress Note Date: 05/11/24 Patient is a 53-year-old male with a known history of hypertension, diabetes type 2 on insulin pump and history of left AKA and marijuana use was sent from wound care clinic for IV antibiotics. Patient was sent to hospital due to right toe infection. Patient was on outpatient antibiotic course with Augmentin. Patient noticed to having discoloration of the toes and discharge. Also worsening pain and surrounding redness. Patient was not able to picker his prescription when the initial prescription was sent. X-ray of the foot showed soft tissue swelling without evidence for osseous erosion to suggest osteomyelitis. No evidence of acute fracture. Moderate degeneration changes throughout the joints of the foot. Laboratory data showed WBC 12.1 hemoglobin 10.6 and platelets 394, sodium 131 potassium 5.0 chloride 99 bicarb is 26 BUN 26 and creatinine 0.89 and blood sugar 554. Albumin 2.8 and alk phos 666 05/10/2024 Patient is lying in the bed. Awake alert and oriented x 3. Currently on room air. No complaints of chest pain or shortness of breath. Denies any worsening pain of the right great toe. Continued on IV antibiotics. Cultures are growing Klebsiella and Streptococcus agalactiae. Laboratory data showed WBC 9.9 hemoglobin 10.7 and platelets 368 sodium 138 potassium 4.5 chloride 102 bicarb is 26 BUN 17.4 and creatinine 0.9 and A1c 14.3 alk phos 548 and albumin 2.7. Patient is being continued on Zosyn. ID and vascular surgery is on board. 05/11/2024 Patient is currently resting in the bed. Awake alert and oriented x 3. No complaints of chest pain or shortness of breath. Afebrile. No nausea vomiting abdominal pain. Right foot pain is controlled. Patient is scheduled for a right great toe amputation today. Vascular surgery and ID is on board. Patient is being continued on antibiotics Zosyn. His blood sugar is still elevated. Insulin regimen is being adjusted. Laboratory data showed WBC 7.9 hemoglobin 11.1 and platelets 358 sodium 138 potassium 4.5 chloride 103 bicarb is 25.3 BUN 18.0 and creatinine 1.0 and blood sugar is 178 calcium 8.3. Current medications reviewed. Objective - Vital Signs Vital signs: Vital Signs Temp 98.8 F 05/11/24 19:43 Pulse 87 05/11/24 19:43 Resp 17 05/11/24 19:43 BP 158/88 05/11/24 19:43 Pulse Ox 100 05/11/24 19:43 FiO2 Intake & Output 05/11/24 05/11/24 05/12/24 06:59 18:59 06:59 Intake Total 1600 Output Total 250 505 Balance -250 1095 Weight 77.564 kg Intake: IV 1600 Output: Urine 250 500 Estimated Blood Loss 5 Other: Voiding Method Urinal Urinal - Labs CBC & Chem 7: 05/11/24 06:31 05/11/24 06:34 Labs: Abnormal Lab Results - Last 24 Hours (Table) 05/11/24 05/11/24 05/11/24 Range/Units 06:06 06:31 06:34 RBC 3.66 L (4.30-5.90) m/uL Hgb 11.1 L (13.0-17.5) gm/dL Hct 35.3 L (39.0-53.0) % Glucose 170 H (70-110) mg/dL POC Glucose (mg/dL) 193 H (70-110) mg/dL Calcium 8.3 L (8.7-10.3) mg/dL 05/11/24 05/11/24 05/11/24 Range/Units 11:31 11:49 16:39 RBC (4.30-5.90) m/uL Hgb (13.0-17.5) gm/dL Hct (39.0-53.0) % Glucose (70-110) mg/dL POC Glucose (mg/dL) 117 H 120 H 301 H (70-110) mg/dL Calcium (8.7-10.3) mg/dL 05/11/24 Range/Units 21:35 RBC (4.30-5.90) m/uL Hgb (13.0-17.5) gm/dL Hct (39.0-53.0) % Glucose (70-110) mg/dL POC Glucose (mg/dL) 283 H (70-110) mg/dL Calcium (8.7-10.3) mg/dL Microbiology - Last 24 Hours (Table) 05/09/24 12:00 Blood Culture - Preliminary Blood 05/09/24 11:45 Blood Culture - Preliminary Blood 05/09/24 11:48 Anaerobic Culture - Preliminary Toe - Right First Prevotella melaninogenica 05/09/24 11:48 Gram Stain - Final Toe - Right First Wound Culture - Final Klebsiella oxytoca Strep agalactiae - (group b)
--- NOTE | 2024-05-13 02:10 | P.PN ---
Subjective Progress Note Date: 05/12/24 Patient is a 53-year-old male with a known history of hypertension, diabetes type 2 on insulin pump and history of left AKA and marijuana use was sent from wound care clinic for IV antibiotics. Patient was sent to hospital due to right toe infection. Patient was on outpatient antibiotic course with Augmentin. Patient noticed to having discoloration of the toes and discharge. Also worsening pain and surrounding redness. Patient was not able to cloth picker his prescription when the initial prescription was sent. X-ray of the foot showed soft tissue swelling without evidence for osseous erosion to suggest osteomyelitis. No evidence of acute fracture. Moderate degeneration changes throughout the joints of the foot. Laboratory data showed WBC 12.1 hemoglobin 10.6 and platelets 394, sodium 131 potassium 5.0 chloride 99 bicarb is 26 BUN 26 and creatinine 0.89 and blood sugar 554. Albumin 2.8 and alk phos 666 05/10/2024 Patient is lying in the bed. Awake alert and oriented x 3. Currently on room air. No complaints of chest pain or shortness of breath. Denies any worsening pain of the right great toe. Continued on IV antibiotics. Cultures are growing Klebsiella and Streptococcus agalactiae. Laboratory data showed WBC 9.9 hemoglobin 10.7 and platelets 368 sodium 138 potassium 4.5 chloride 102 bicarb is 26 BUN 17.4 and creatinine 0.9 and A1c 14.3 alk phos 548 and albumin 2.7. Patient is being continued on Zosyn. ID and vascular surgery is on board. 05/11/2024 Patient is currently resting in the bed. Awake alert and oriented x 3. No complaints of chest pain or shortness of breath. Afebrile. No nausea vomiting abdominal pain. Right foot pain is controlled. Patient is scheduled for a right great toe amputation today. Vascular surgery and ID is on board. Patient is being continued on antibiotics Zosyn. His blood sugar is still elevated. Insulin regimen is being adjusted. Laboratory data showed WBC 7.9 hemoglobin 11.1 and platelets 358 sodium 138 potassium 4.5 chloride 103 bicarb is 25.3 BUN 18.0 and creatinine 1.0 and blood sugar is 178 calcium 8.3. 05/12/2024 Patient is resting in the bed. Awake alert, oriented x 3. Patient is s/p right great toe amputation. Postoperative day 1 No complaints of chest pain or shortness of breath. Afebrile. No nausea vomiting or abdominal pain or diarrhea. Laboratory data reviewed. Blood sugar is still elevated this afternoon. Vascular surgery and ID is on board. Patient remains on antibiotics in the form of Zosyn. Current medications reviewed. Objective - Vital Signs Vital signs: Vital Signs Temp 98.4 F 05/12/24 19:25 Pulse 91 05/12/24 19:25 Resp 16 05/12/24 19:25 BP 148/67 05/12/24 19:25 Pulse Ox 100 05/12/24 19:25 FiO2 Intake & Output 05/12/24 05/12/24 05/13/24 06:59 18:59 06:59 Output Total 1675 1500 400 Balance -1675 -1500 -400 Output: Urine 1675 1500 400 Other: Voiding Method Urinal - Exam PHYSICAL EXAMINATION: Patient is lying in the bed comfortably, no acute distress, awake alert and uriel ented.. HEENT: Normocephalic. Neck is supple. Pupils reactive. Nostrils clear. Oral cavity is moist. Neck reveals no JVD, carotid bruits, or thyromegaly. CHEST EXAMINATION: Trachea is central. Symmetrical expansion. Lung redd clear to auscultation and percussion. CARDIAC: Normal S1, S2 with no gallops. No murmurs ABDOMEN: Soft. Bowel sounds normal. No organomegaly. No abdominal bruits. Extremities: Left AKA. Right great toe amputation site is packed... No clubbing or cyanosis Neurologically awake, alert, oriented x3 with well-coordinated movements. No focal deficits noted Skin: No rash or skin lesions. Psychiatric: Coperative. Nonsuicidal Musculoskeletal: No joint swelling or deformity. Normal range of motion. - Labs CBC & Chem 7: 05/11/24 06:31 05/11/24 06:34 Labs: Abnormal Lab Results - Last 24 Hours (Table) 05/12/24 05/12/24 05/12/24 Range/Units 06:15 11:15 16:30 POC Glucose (mg/dL) 133 H 177 H 285 H (70-110) mg/dL 05/12/24 Range/Units 20:49 POC Glucose (mg/dL) 313 H (70-110) mg/dL Microbiology - Last 24 Hours (Table) 05/09/24 12:00 Blood Culture - Preliminary Blood 05/09/24 11:45 Blood Culture - Preliminary Blood 05/11/24 10:13 Gram Stain - Preliminary Toe - Right First Wound Culture - Preliminary Klebsiella oxytoca Strep agalactiae - (group b) Assessment and Plan Assessment: Right great toe gangrenous nonhealing ulcer. Status post right great amputation. Postoperative day 1 Diabetic foot infection History of left AKA due to infected wound. Hyperglycemia with uncontrolled diabetes on insulin pump at home DVT prophylaxis Plan: Patient will be continued on antibiotics and pain management. Wound culture growing Klebsiella and strep agalactiae. Patient is being continued on IV Zosyn. Continue with insulin regimen and sliding scale for better blood sugar control. Patient is on insulin pump at home. Vascular surgery and ID is on board. S/p right great toe amputation by vascular surgery. Follow-up final culture report. Continue to follow closely.
[2024-05-13 06:22] LABS: Glucose,Whole Blood 379 mg/dL (70-110)
[2024-05-13] MEDS: INSULIN ASPART (NovoLOG) 100 UNIT/ML VIAL SQ SCH (06:42)
[2024-05-13 08:21] LABS: Basophils # (A) 0.1 k/uL (0-0.2); Basophils % (A) 1 %; Eosinophils # (A) 0.1 k/uL (0-0.7); Eosinophils % (A) 1 %; HCT 33.2 % (39.0-53.0); HGB 10.5 gm/dL (13.0-17.5); Hypochromasia Moderate; Lymphocytes # (A) 2.3 k/uL (1.0-4.8); Lymphocytes % (A) 26 %; MCH 30.6 pg (25.0-35.0); MCHC 31.6 g/dL (31.0-37.0); MCV 96.8 fL (80.0-100.0); Mean Platelet Volume 9.2; Monocytes # (A) 0.6 k/uL (0-1.0); Monocytes % (A) 7 %; Neutrophils # (A) 5.6 k/uL (1.3-7.7); Neutrophils % (A) 64 %; Platelet Count 445 k/uL (150-450); RBC 3.44 m/uL (4.30-5.90); RDW 13.6 % (11.5-15.5); WBC 8.7 k/uL (3.8-10.6)
[2024-05-13 08:38] LABS: African American GFR (CKD) 85 (>60 ml/min/1.73 sqM); Anion Gap 3 mmol/L; Blood Urea Nitrogen 31 mg/dL (9-20); Calcium 8.2 mg/dL (8.4-10.2); Carbon Dioxide 26 mmol/L (22-30); Chloride 107 mmol/L (98-107); Glucose 343 mg/dL (74-99); Non-African American GFR(CKD) 73 (>60 ml/min/1.73 sqM); Potassium 4.5 mmol/L (3.5-5.1); Sodium 136 mmol/L (137-145)
[2024-05-13 11:51] LABS: Glucose,Whole Blood 378 mg/dL (70-110)
--- NOTE | 2024-05-13 15:05 | P.PN ---
Subjective Progress Note Date: 05/12/24 Principal diagnosis: Reason for follow-up is right big toe diabetic foot ulcer and infection Patient is a 53-year-old -[place] male with a past medical history negative for diabetes mellitus and hypertension patient did have a previous history of left diabetic foot wound requiring left [id number]-[id number] amputation about a year ago patient recently had developed a wound to his right big toe, presented to hospital worsening swelling redness and drainage.patient is s/p rig ht big toe amputation completed by vascular surgery on 05/11/2024. On today's evaluation that is 05/12/2024,the patient denies any fever or any chills, patient is breathing comfortably on room air, the patient denies chest pain shortness of breath and no significant cough, patient denies abdominal pa in, no nausea vomiting or diarrhea. Some pain to the right big toe amputation site. No CBC was done today right big toe culture currently growing Klebsiella Streptococcus agalactiae and Prevotella Objective - Vital Signs Vital signs: Vital Signs Temp 97.5 F L 05/12/24 12:30 Pulse 84 05/12/24 12:30 Resp 14 05/12/24 12:30 BP 147/87 05/12/24 12:30 Pulse Ox 100 05/12/24 12:30 FiO2 Intake & Output 05/11/24 05/12/24 05/12/24 18:59 06:59 18:59 Intake Total 1600 Output Total 505 1675 1500 Balance 1095 -6285 -1500 Weight 77.564 kg Intake: IV 1600 Output: Urine 500 1675 1500 Estimated Blood Loss 5 Other: Voiding Method Urinal - Exam GENERAL DESCRIPTION: Middle-age male lying in bed in no distress RESPIRATORY SYSTEM: Unlabored breathing , decreased breath sounds at bases HEART: S1 S2 regular rate and rhythm , ABDOMEN: Soft , no tenderness EXTREMITIES: Right big toe amputation site is currently dressed - Labs CBC & Chem 7: 05/13/24 07:01 05/13/24 06:57 Labs: Abnormal Lab Results - Last 24 Hours (Table) 05/11/24 05/12/24 05/12/24 Range/Units 21:35 06:15 11:15 POC Glucose (mg/dL) 283 H 133 H 177 H (70-110) mg/dL 05/12/24 Range/Units 16:30 POC Glucose (mg/dL) 285 H (70-110) mg/dL Microbiology - Last 24 Hours (Table) 05/09/24 12:00 Blood Culture - Preliminary Blood 05/09/24 11:45 Blood Culture - Preliminary Blood 05/11/24 10:13 Gram Stain - Preliminary Toe - Right First Wound Culture - Preliminary Klebsiella oxytoca Strep agalactiae - (group b) 05/09/24 11:48 Anaerobic Culture - Preliminary Toe - Right First Prevotella melaninogenica Assessment and Plan (1) Ulcer of right foot due to type 2 diabetes mellitus Current Visit: Yes Status: Acute Code(s): E11.621 - TYPE 2 DIABETES MELLITUS WITH FOOT ULCER; L97.519 - NON-PRS CHRONIC ULCER OTH PRT RIGHT FOOT W UNSP SEVERITY SNOMED Code(s): 92756966304813407 (2) Cellulitis of great toe, right Current Visit: Yes Status: Acute Code(s): L03.031 - CELLULITIS OF RIGHT TOE SNOMED Code(s): 33033931817013 Plan: 1patient presented hospital with Right big toe diabetic foot infection in this patient who did have some necrotic changes and patient has been dealing with this also for couple of weeks noticed to have recent worsening with recent outpatient culture positive for Klebsiella and strep and anaerobe, culture this admission is growing Klebsiella and Streptococcus 2-patient is status post right big toe amputation culture currently growing Klebsiella strep and anaerobic we will continue patient on Zosyn local wound care per surgical team Dictation was produced using [employer] dictation software. please excuse any grammatical, word or spelling errors. Time with Patient: Less than 30
--- NOTE | 2024-05-13 15:06 | P.PN ---
Subjective Progress Note Date: 05/13/24 Principal diagnosis: Reason for follow-up is right big toe diabetic foot ulcer and infection Patient is a 53-year-old -[place]inames[place] male with a past medical history negative for diabetes mellitus and hypertension patient did have a previous history of left diabetic foot wound requiring left dalgd-hrb-iceo amputation about a year ago patient recently had developed a wound to his right big toe, presented to hospital worsening swelling redness and drainage.patient is s/p rig ht big toe amputation completed by vascular surgery on 05/11/2024. On today's evaluation that is 05/13/2024,the patient remains to be afebrile, patient is on room air not requiring supplemental oxygen and denies any shortness of breath no chest pain or cough.Patient denies having any nausea or vomiting, no abdominal pain and no diarrhea has been reported, pain to the right big toe amputation site is currently controlled Patient white count is 8.7, creat is 1.16,big toe culture currently growing Kl ebsiella Streptococcus agalactiae and Prevotella Objective - Vital Signs Vital signs: Vital Signs Temp 98.5 F 05/13/24 14:11 Pulse 89 05/13/24 14:11 Resp 18 05/13/24 14:11 BP 147/81 05/13/24 14:11 Pulse Ox 100 05/13/24 14:11 FiO2 Intake & Output 05/12/24 05/13/24 05/13/24 18:59 06:59 18:59 Intake Total 340 Output Total 1500 1600 700 Balance -1500 -1600 -360 Intake: Intake, IV Titration 340 Amount Lactated Ringers 1,000 ml 240 @ 20 mls/hr IV .Q24H YAZMIN Rx#:[id number] Piperacillin-Tazobactam 3 100 .375 gm In Sodium Chloride 0.9% 100 ml @ 25 mls/hr IVPB Q8H YAZMIN Rx#: [id number] Output: Urine 1500 1600 700 Other: Voiding Method Urinal Urinal - Exam GENERAL DESCRIPTION: Middle-age male lying in bed in no distress RESPIRATORY SYSTEM: Unlabored breathing , decreased breath sounds at bases HEART: S1 S2 regular rate and rhythm , ABDOMEN: Soft , no tenderness EXTREMITIES: Right big toe amputation site wound is open and deep - Labs CBC & Chem 7: 05/13/24 07:01 05/13/24 06:57 Labs: Abnormal Lab Results - Last 24 Hours (Table) 05/12/24 05/12/24 05/13/24 Range/Units 16:30 20:49 06:20 RBC (4.30-5.90) m/uL Hgb (13.0-17.5) gm/dL Hct (39.0-53.0) % Sodium (137-145) mmol/L BUN (9-20) mg/dL Glucose (74-99) mg/dL POC Glucose (mg/dL) 285 H 313 H 379 H (70-110) mg/dL Calcium (8.4-10.2) mg/dL 05/13/24 05/13/24 05/13/24 Range/Units 06:57 07:01 11:49 RBC 3.44 L (4.30-5.90) m/uL Hgb 10.5 L (13.0-17.5) gm/dL Hct 33.2 L (39.0-53.0) % Sodium 136 L (137-145) mmol/L BUN 31 H (9-20) mg/dL Glucose 343 H (74-99) mg/dL POC Glucose (mg/dL) 378 H (70-110) mg/dL Calcium 8.2 L (8.4-10.2) mg/dL Microbiology - Last 24 Hours (Table) 05/09/24 11:48 Anaerobic Culture - Final Toe - Right First Prevotella melaninogenica 05/11/24 10:13 Anaerobic Culture - Preliminary Toe - Right First Prevotella melaninogenica 05/11/24 10:13 Gram Stain - Final Toe - Right First Wound Culture - Final Klebsiella oxytoca Strep agalactiae - (group b) 05/09/24 12:00 Blood Culture - Preliminary Blood 05/09/24 11:45 Blood Culture - Preliminary Blood Assessment and Plan (1) Ulcer of right foot due to type 2 diabetes mellitus Current Visit: Yes Status: Acute Code(s): E11.621 - TYPE 2 DIABETES MELLITUS WITH FOOT ULCER; L97.519 - NON-PRS CHRONIC ULCER OTH PRT RIGHT FOOT W UNSP SEVERITY SNOMED Code(s): 02816079964824194 (2) Cellulitis of great toe, right Current Visit: Yes Status: Acute Code(s): L03.031 - CELLULITIS OF RIGHT TOE SNOMED Code(s): 79603225896482 Plan: 1patient presented hospital with Right big toe diabetic foot infection in this patient who did have some necrotic changes and patient has been dealing with this also for couple of weeks noticed to have recent worsening with recent outpatient culture positive for Klebsiella and strep and anaerobe, culture this admission is growing Klebsiella and Streptococcus 2-patient is status post right big toe amputation culture currently growing Klebsiella strep and Prevotella 3-patient to continue Zosyn will need a PICC line and outpatient IV antibiotic therapy Dictation was produced using [employer] dictation software. please excuse any grammatical, word or spelling errors. Time with Patient: Less than 30
[2024-05-13 16:49] LABS: Glucose,Whole Blood 343 mg/dL (70-110)
--- NOTE | 2024-05-13 17:50 | P.PN ---
Subjective Progress Note Date: 05/13/24 Interval History: Patient is a 53-year-old male with a known history of hypertension, diabetes type 2 on insulin pump and history of left AKA and marijuana use was sent from wound care clinic for IV antibiotics. Patient was sent to hospital due to right toe infection. Patient was on outpatient antibiotic course with Augmentin. Patient noticed to having discoloration of the toes and discharge. Also wo rsening pain and surrounding redness. Patient was not able to black pickler his prescription when the initial prescription was sent. X-ray of the foot showed soft tissue swelling without evidence for osseous erosion to suggest osteomyelitis. No evidence of acute fracture. Moderate degeneration changes throughout the joints of the foot. Laboratory data showed WBC 12.1 hemoglobin 10.6 and platelets 394, sodium 131 potassium 5.0 chloride 99 bicarb is 26 BUN 26 and creatinine 0.89 and blood sugar 554. Albumin 2.8 and alk phos 666 05/10/2024 Patient is lying in the bed. Awake alert and oriented x 3. Currently on room air. No complaints of chest pain or shortness of breath. Denies any worsening pain of the right great toe. Continued on IV antibiotics. Cultures are growing Klebsiella and Streptococcus agalactiae. Laboratory data showed WBC 9.9 hemoglobin 10.7 and platelets 368 sodium 138 po tassium 4.5 chloride 102 bicarb is 26 BUN 17.4 and creatinine 0.9 and A1c 14.3 alk phos 548 and albumin 2.7. Patient is being continued on Zosyn. ID and vascular surgery is on board. 05/11/2024 Patient is currently resting in the bed. Awake alert and oriented x 3. No complaints of chest pain or shortness of breath. Afebrile. No nausea vomiting abdominal pain. Right foot pain is controlled. Patient is scheduled for a right great toe amputation today. Vascular surgery and ID is on board. Patient is being continued on antibiotics Zosyn. His blood sugar is still elevated. Insulin regimen is being adjusted. Laboratory data showed WBC 7.9 hemoglobin 11.1 and platelets 358 sodium 138 potassium 4.5 chloride 103 bicarb is 25.3 BUN 18.0 and creatinine 1.0 and blood sugar is 178 calcium 8.3. 05/12/2024 Patient is resting in the bed. Awake alert, oriented x 3. Patient is s/p right great toe amputation. Postoperative day 1 No complaints of chest pain or shortness of breath. Afebrile. No nausea vomiting or abdominal pain or diarrhea. Laboratory data reviewed. Blood sugar is still elevated this afternoon. Vascular surgery and ID is on board. Patient remains on antibiotics in the form of Zosyn. 05/13/2024 Patient was seen and examined today, resting comfortably, alert and oriented x 3. Pain is controlled. Postoperative day 2, remains on Zosyn. Infectious disease and vascular surgery on board. Blood sugars elevated, patient currently on Levemir, scheduled Humalog per scale. Assessment and plan: Right great toe gangrenous nonhealing ulcer. Status post right great amputation. Postoperative day 2 Diabetic foot infection History of left AKA due to infected wound. Hyperglycemia with uncontrolled diabetes on insulin pump at home DVT prophylaxis Plan: Patient will be continued on antibiotics and pain management. Wound culture growing Klebsiella and strep agalactiae. Patient is being continued on IV Zosyn. Continue with insulin regimen Levemir, scheduled Humalog and sliding scale for better blood sugar control. Patient is on insulin pump at home--now off Vascular surgery and ID is on board. S/p right great toe amputation by vascular surgery. Follow-up final culture report. Continue to follow closely. DVT prophylaxis: Subcutaneous heparin. PHYSICAL EXAMINATION: GENERAL: The patient is A&O x3, NAD HEENT: EOMI, Sclerae anicteric, Moist Mucous membranes Neck: Supple, Non tender, No JVD CARDIOVASCULAR: S1, S2 present. No murmurs, rubs, or gallops. PULMONARY: Equal breath souds B/L, No wheezing, No crackles. ABDOMEN: Soft, nontender, nondistended, normoactive bowel sounds. No guarding or rebound tenderness. MUSCULOSKELETAL: No edema, No cyanosis. No clubbing. Normal ROM. Intact p eripheral pulses. Right foot dressed. Skin; Warm. No rash. REVIEW OF SYSTEMS: CONSTITUTIONAL: No fever or chills. CARDIOVASCULAR: No chest pain, palpitations or syncope. PULMONARY: No shortness of breath, no cough, sore throat. GASTROINTESTINAL: No nausea, vomiting, diarrhea, abdominal pain. : No Dysuria, urgency, frequency. Extremities: No edema. NEUROLOGICAL: No headaches, no weakness, or numbness Dictation was produced using [employer] software. please excuse any grammatical, word or spelling errors. Objective - Vital Signs Vital signs: Vital Signs Temp 98.5 F 05/13/24 14:11 Pulse 89 05/13/24 14:11 Resp 18 05/13/24 14:11 BP 147/81 05/13/24 14:11 Pulse Ox 100 05/13/24 14:11 FiO2 Intake & Output 05/12/24 05/13/24 05/13/24 18:59 06:59 18:59 Intake Total 340 Output Total 1500 1600 1200 Balance -1500 -1600 -860 Intake: Intake, IV Titration 340 Amount Lactated Ringers 1,000 ml 240 @ 20 mls/hr IV .Q24H YAZMIN Rx#:[id number] Piperacillin-Tazobactam 3 100 .375 gm In Sodium Chloride 0.9% 100 ml @ 25 mls/hr IVPB Q8H YAZMIN Rx#: [id number] Output: Urine 1500 1600 1200 Other: Voiding Method Urinal Urinal - Labs CBC & Chem 7: 05/13/24 07:01 05/13/24 06:57 Labs: Abnormal Lab Results - Last 24 Hours (Table) 05/12/24 05/13/24 05/13/24 Range/Units 20:49 06:20 06:57 RBC (4.30-5.90) m/uL Hgb (13.0-17.5) gm/dL Hct (39.0-53.0) % Sodium 136 L (137-145) mmol/L BUN 31 H (9-20) mg/dL Glucose 343 H (74-99) mg/dL POC Glucose (mg/dL) 313 H 379 H (70-110) mg/dL Calcium 8.2 L (8.4-10.2) mg/dL 05/13/24 05/13/24 05/13/24 Range/Units 07:01 11:49 16:48 RBC 3.44 L (4.30-5.90) m/uL Hgb 10.5 L (13.0-17.5) gm/dL Hct 33.2 L (39.0-53.0) % Sodium (137-145) mmol/L BUN (9-20) mg/dL Glucose (74-99) mg/dL POC Glucose (mg/dL) 378 H 343 H (70-110) mg/dL Calcium (8.4-10.2) mg/dL Microbiology - Last 24 Hours (Table) 05/09/24 11:48 Anaerobic Culture - Final Toe - Right First Prevotella melaninogenica 05/11/24 10:13 Anaerobic Culture - Preliminary Toe - Right First Prevotella melaninogenica 05/11/24 10:13 Gram Stain - Final Toe - Right First Wound Culture - Final Klebsiella oxytoca Strep agalactiae - (group b) 05/09/24 12:00 Blood Culture - Preliminary Blood 05/09/24 11:45 Blood Culture - Preliminary Blood
[2024-05-13 20:28] LABS: Glucose,Whole Blood 320 mg/dL (70-110)
[2024-05-14 05:47] LABS: Glucose,Whole Blood 198 mg/dL (70-110)
[2024-05-14 11:12] LABS: Glucose,Whole Blood 265 mg/dL (70-110)
--- NOTE | 2024-05-14 14:22 | P.PN ---
Subjective Progress Note Date: 05/14/24 Interval History: Patient is a 53-year-old male with a known history of hypertension, diabetes type 2 on insulin pump and history of left AKA and marijuana use was sent from wound care clinic for IV antibiotics. Patient was sent to hospital due to right toe infection. Patient was on outpatient antibiotic course with Augmentin. Patient noticed to having discoloration of the toes and discharge. Also wo rsening pain and surrounding redness. Patient was not able to picker operator his prescription when the initial prescription was sent. X-ray of the foot showed soft tissue swelling without evidence for osseous erosion to suggest osteomyelitis. No evidence of acute fracture. Moderate degeneration changes throughout the joints of the foot. Laboratory data showed WBC 12.1 hemoglobin 10.6 and platelets 394, sodium 131 potassium 5.0 chloride 99 bicarb is 26 BUN 26 and creatinine 0.89 and blood sugar 554. Albumin 2.8 and alk phos 666 05/10/2024 Patient is lying in the bed. Awake alert and oriented x 3. Currently on room air. No complaints of chest pain or shortness of breath. Denies any worsening pain of the right great toe. Continued on IV antibiotics. Cultures are growing Klebsiella and Streptococcus agalactiae. Laboratory data showed WBC 9.9 hemoglobin 10.7 and platelets 368 sodium 138 po tassium 4.5 chloride 102 bicarb is 26 BUN 17.4 and creatinine 0.9 and A1c 14.3 alk phos 548 and albumin 2.7. Patient is being continued on Zosyn. ID and vascular surgery is on board. 05/11/2024 Patient is currently resting in the bed. Awake alert and oriented x 3. No complaints of chest pain or shortness of breath. Afebrile. No nausea vomiting abdominal pain. Right foot pain is controlled. Patient is scheduled for a right great toe amputation today. Vascular surgery and ID is on board. Patient is being continued on antibiotics Zosyn. His blood sugar is still elevated. Insulin regimen is being adjusted. Laboratory data showed WBC 7.9 hemoglobin 11.1 and platelets 358 sodium 138 potassium 4.5 chloride 103 bicarb is 25.3 BUN 18.0 and creatinine 1.0 and blood sugar is 178 calcium 8.3. 05/12/2024 Patient is resting in the bed. Awake alert, oriented x 3. Patient is s/p right great toe amputation. Postoperative day 1 No complaints of chest pain or shortness of breath. Afebrile. No nausea vomiting or abdominal pain or diarrhea. Laboratory data reviewed. Blood sugar is still elevated this afternoon. Vascular surgery and ID is on board. Patient remains on antibiotics in the form of Zosyn. 05/13/2024 Patient was seen and examined today, resting comfortably, alert and oriented x 3. Pain is controlled. Postoperative day 2, remains on Zosyn. Infectious disease and vascular surgery on board. Blood sugars elevated, patient currently on Levemir, scheduled Humalog plus scale. 05/14/24 Patient alert oriented x 3. Resting comfortably. Pain is controlled. Patient currently on Zosyn, will need a PICC line and outpatient IV antibiotics. Assessment and plan: Right great toe gangrenous nonhealing ulcer. Status post right great amputation. Postoperative day 2 Diabetic foot infection History of left AKA due to infected wound. Hyperglycemia with uncontrolled diabetes on insulin pump at home DVT prophylaxis Plan: Patient will be continued on antibiotics and pain management. Wound culture growing Klebsiella and strep agalactiae. Currently on Zosyn. Continue with insulin regimen Levemir, scheduled Humalog and sliding scale for better blood sugar control. Patient is on insulin pump at home--now off Vascular surgery and ID is on board. S/p right great toe amputation by vascular surgery. Follow-up final culture report. Continue to follow closely. Currently on Zosyn, will need PICC line and outpatient IV antibiotics. Consult PT/OT--May need subacute rehab. DVT prophylaxis: Subcutaneous heparin. PHYSICAL EXAMINATION: GENERAL: The patient is A&O x3, NAD HEENT: EOMI, Sclerae anicteric, Moist Mucous membranes Neck: Supple, Non tender, No JVD CARDIOVASCULAR: S1, S2 present. No murmurs, rubs, or gallops. PULMONARY: Equal breath souds B/L, No wheezing, No crackles. ABDOMEN: Soft, nontender, nondistended, normoactive bowel sounds. No guarding or rebound tenderness. MUSCULOSKELETAL: No edema, No cyanosis. No clubbing. Normal ROM. Intact peripheral pulses. Right foot dressed. Skin; Warm. No rash. REVIEW OF SYSTEMS: CONSTITUTIONAL: No fever or chills. CARDIOVASCULAR: No chest pain, palpitations or syncope. PULMONARY: No shortness of breath, no cough, sore throat. GASTROINTESTINAL: No nausea, vomiting, diarrhea, abdominal pain. : No Dysuria, urgency, frequency. Extremities: No edema. NEUROLOGICAL: No headaches, no weakness, or numbness Dictation was produced using [employer] dictation software. please excuse any grammatical, word or spelling errors. Objective - Vital Signs Vital signs: Vital Signs Temp 98.2 F 05/14/24 06:57 Pulse 77 05/14/24 08:05 Resp 18 05/14/24 08:05 BP 153/89 05/14/24 06:57 Pulse Ox 100 05/14/24 06:57 FiO2 Intake & Output 05/13/24 05/14/24 05/14/24 18:59 06:59 18:59 Intake Total 340 Output Total 1200 3300 Balance -860 -3300 Intake: Intake, IV Titration 340 Amount Lactated Ringers 1,000 ml 240 @ 20 mls/hr IV .Q24H YAZMIN Rx#:[id number] Piperacillin-Tazobactam 3 100 .375 gm In Sodium Chloride 0.9% 100 ml @ 25 mls/hr IVPB Q8H YAZMIN Rx#: [id number] Output: Urine 1200 2450 Stool 850 Other: Voiding Method Urinal Urinal # Voids 3 - Labs CBC & Chem 7: 05/13/24 07:01 05/13/24 06:57 Labs: Abnormal Lab Results - Last 24 Hours (Table) 05/13/24 05/13/24 05/14/24 Range/Units 16:48 20:26 05:45 POC Glucose (mg/dL) 343 H 320 H 198 H (70-110) mg/dL 05/14/24 Range/Units 11:09 POC Glucose (mg/dL) 265 H (70-110) mg/dL Microbiology - Last 24 Hours (Table) 05/09/24 11:48 Anaerobic Culture - Final Toe - Right First Prevotella melaninogenica 05/11/24 10:13 Anaerobic Culture - Preliminary Toe - Right First Prevotella melaninogenica
--- NOTE | 2024-05-14 15:39 | P.PN ---
Subjective Progress Note Date: 05/14/24 Principal diagnosis: Reason for follow-up is right big toe diabetic foot ulcer and infection Patient is a 53-year-old -[place] male with a past medical history negative for diabetes mellitus and hypertension patient did have a previous history of left diabetic foot wound requiring left [id number] amputation about a year ago patient recently had developed a wound to his right big toe, presented to hospital worsening swelling redness and drainage.patient is s/p rig ht big toe amputation completed by vascular surgery on 05/11/2024. On today's evaluation that is 05/14/2024, the patient continues to be afebrile, the patient is on room air and breathing comfortably, the Pt denies having any chest pain or cough, the patient denies having any abdominal pain no vomiting or any diarrhea denies any worsening pain to the right big toe potation site. No new labs were obtained today Objective - Vital Signs Vital signs: Vital Signs Temp 98.0 F 05/14/24 14:10 Pulse 86 05/14/24 14:10 Resp 16 05/14/24 14:10 BP 183/93 05/14/24 14:10 Pulse Ox 99 05/14/24 14:10 FiO2 Intake & Output 05/13/24 05/14/24 05/14/24 18:59 06:59 18:59 Intake Total 340 Output Total 1200 3300 Balance -860 -3300 Intake: Intake, IV Titration 340 Amount Lactated Ringers 1,000 ml 240 @ 20 mls/hr IV .Q24H YAZMIN Rx#:[id number] Piperacillin-Tazobactam 3 100 .375 gm In Sodium Chloride 0.9% 100 ml @ 25 mls/hr IVPB Q8H YAZMIN Rx#: [id number] Output: Urine 1200 2450 Stool 850 Other: Voiding Method Urinal Urinal # Voids 3 - Exam GENERAL DESCRIPTION: Middle-age male lying in bed in no distress RESPIRATORY SYSTEM: Unlabored breathing , decreased breath sounds at bases HEART: S1 S2 regular rate and rhythm , ABDOMEN: Soft , no tenderness EXTREMITIES: Right big toe amputation site wound is currently dressed - Labs CBC & Chem 7: 05/13/24 07:01 05/13/24 06:57 Labs: Abnormal Lab Results - Last 24 Hours (Table) 05/13/24 05/13/24 05/14/24 Range/Units 16:48 20:26 05:45 POC Glucose (mg/dL) 343 H 320 H 198 H (70-110) mg/dL 05/14/24 Range/Units 11:09 POC Glucose (mg/dL) 265 H (70-110) mg/dL Microbiology - Last 24 Hours (Table) 05/09/24 11:48 Anaerobic Culture - Final Toe - Right First Prevotella melaninogenica 05/11/24 10:13 Anaerobic Culture - Preliminary Toe - Right First Prevotella melaninogenica Assessment and Plan (1) Ulcer of right foot due to type 2 diabetes mellitus Current Visit: Yes Status: Acute Code(s): E11.621 - TYPE 2 DIABETES MELLITUS WITH FOOT ULCER; L97.519 - NON-PRS CHRONIC ULCER OTH PRT RIGHT FOOT W UNSP SEVERITY SNOMED Code(s): 77844161284748007 (2) Cellulitis of great toe, right Current Visit: Yes Status: Acute Code(s): L03.031 - CELLULITIS OF RIGHT TOE SNOMED Code(s): 05060171116187 Plan: 1patient presented hospital with Right big toe diabetic foot infection in this patient who did have some necrotic changes and patient has been dealing with this also for couple of weeks noticed to have recent worsening with recent outpatient culture positive for Klebsiella and strep and anaerobe, culture this admission is growing Klebsiella and Streptococcus 2-patient is status post right big toe amputation culture currently growing Klebsiella strep and Prevotella 3-patient to continue Zosyn we will order PICC line for outpatient IV antibiotic therapy recommend at least 6-week course Dictation was produced using [employer] dictation software. please excuse any grammatical, word or spelling errors. Time with Patient: Less than 30
[2024-05-14 16:39] LABS: Glucose,Whole Blood 261 mg/dL (70-110)
[2024-05-14 21:02] LABS: Glucose,Whole Blood 221 mg/dL (70-110)
[2024-05-14 21:44] VITALS: RESP 18
[2024-05-15 01:46] VITALS: BP 161/80; PULSE 88; TEMP 98.7
[2024-05-15 05:57] LABS: Glucose,Whole Blood 251 mg/dL (70-110)
[2024-05-15 06:36] LABS: INR 0.9 (<1.2); Prothrombin Time 9.8 sec (10.0-12.5)
[2024-05-15] MEDS ORDERED: lisinopriL 20 MG TAB ONE (09:20)
[2024-05-15] MEDS ORDERED: GABAPENTIN 400 MG CAP ONE ×3 (09:20→21:06)
[2024-05-15] MEDS ORDERED: HEPARIN SODIUM,PORCINE 5,000 UNIT/ML 1 ML VIAL ONE ×3 (09:21→23:22)
[2024-05-15] MEDS ORDERED: INSULIN ASPART (NovoLOG) 100 UNIT/ML VIAL SQ ONE ×6 (09:21→21:07)
[2024-05-15] MEDS ORDERED: PIPERACILLIN-TAZOBACTAM 3.375 GM VIAL ONE ×3 (09:21→23:22)
[2024-05-15] MEDS ORDERED: SODIUM CHLORIDE 0.9% 100 ML ONE ×3 (09:21→23:22)
[2024-05-15 11:28] LABS: Glucose,Whole Blood 213 mg/dL (70-110)
[2024-05-15 16:54] LABS: Glucose,Whole Blood 286 mg/dL (70-110)
[2024-05-15 20:58] LABS: Glucose,Whole Blood 319 mg/dL (70-110)
[2024-05-15] MEDS ORDERED: SODIUM CHLORIDE 0.9% 100 ML BAG ONE (23:59)
[2024-05-15] MEDS ORDERED: INSULIN DETEMIR (LEVEMIR) 100 UNIT/ML SYR SQ ONE (23:59)
[2024-05-16 06:20] LABS: Glucose,Whole Blood 153 mg/dL (70-110)
[2024-05-16] MEDS ORDERED: INSULIN ASPART (NovoLOG) 100 UNIT/ML VIAL SQ ONE ×7 (06:44→22:51)
[2024-05-16] MEDS ORDERED: GABAPENTIN 400 MG CAP ONE ×3 (07:26→22:12)
[2024-05-16] MEDS ORDERED: lisinopriL 20 MG TAB ONE (07:26)
[2024-05-16] MEDS ORDERED: PIPERACILLIN-TAZOBACTAM 3.375 GM VIAL ONE ×3 (07:27→23:40)
[2024-05-16] MEDS ORDERED: SODIUM CHLORIDE 0.9% 100 ML ONE ×3 (07:27→23:40)
[2024-05-16] MEDS ORDERED: HEPARIN SODIUM,PORCINE 5,000 UNIT/ML 1 ML VIAL ONE ×2 (07:27→15:26)
[2024-05-16 11:43] LABS: Glucose,Whole Blood 159 mg/dL (70-110)
[2024-05-16 16:50] LABS: Glucose,Whole Blood 230 mg/dL (70-110)
[2024-05-16 21:08] LABS: Glucose,Whole Blood 240 mg/dL (70-110)
[2024-05-16] MEDS ORDERED: SODIUM CHLORIDE 0.9% 100 ML BAG IV ONE (23:59)
[2024-05-16] MEDS ORDERED: INSULIN DETEMIR (LEVEMIR) 100 UNIT/ML SYR SQ ONE (23:59)
[2024-05-17] MEDS ORDERED: HEPARIN SODIUM,PORCINE 5,000 UNIT/ML 1 ML VIAL ONE ×2 (00:38→07:59)
[2024-05-17 06:22] LABS: Glucose,Whole Blood 278 mg/dL (70-110)
[2024-05-17] MEDS ORDERED: INSULIN ASPART (NovoLOG) 100 UNIT/ML VIAL SQ ONE ×3 (07:01→16:41)
[2024-05-17] MEDS ORDERED: GABAPENTIN 400 MG CAP ONE ×2 (07:58→15:34)
[2024-05-17] MEDS ORDERED: lisinopriL 20 MG TAB ONE (07:58)
[2024-05-17] MEDS ORDERED: PIPERACILLIN-TAZOBACTAM 3.375 GM VIAL ONE ×2 (09:07→15:34)
[2024-05-17 11:42] LABS: Glucose,Whole Blood 290 mg/dL (70-110)
[2024-05-17 16:15] LABS: Glucose,Whole Blood 354 mg/dL (70-110)
== END 2024-05-17 17:18 | DRG 314 ==
LOC: EC 09:17 → 4SSUR 12:47
PROVIDERS: ADMIT Internal Medicine; ATTEND Internal Medicine
PROC: 0Y6P0Z0 Detachment at Right 1st Toe, Complete, Open Approach (ICD-10-PCS; principal; 2024-05-11 09:30)
DX: E11.52 Type 2 diabetes mellitus with diabetic peripheral angiopathy with gangrene (principal); Z79.4 Long term (current) use of insulin; Z96.41 Presence of insulin pump (external) (internal); L97.519 Non-pressure chronic ulcer of other part of right foot with unspecified severity; L03.031 Cellulitis of right toe; I10 Essential (primary) hypertension; B96.1 Klebsiella pneumoniae [K. pneumoniae] as the cause of diseases classified elsewhere; B95.4 Other streptococcus as the cause of diseases classified elsewhere; E11.628 Type 2 diabetes mellitus with other skin complications; L97.529 Non-pressure chronic ulcer of other part of left foot with unspecified severity; E11.42 Type 2 diabetes mellitus with diabetic polyneuropathy; E11.65 Type 2 diabetes mellitus with hyperglycemia; E11.621 Type 2 diabetes mellitus with foot ulcer; Z89.512 Acquired absence of left leg below knee; Z79.899 Other long term (current) drug therapy
CPT/HCPCS: 36415; 80048; 80053; 83036; 83605; 85025; 85610; 86140; 87040; 87070; 87075; 87077; 87186; 87205; 93923; 96365; 96366; 96372; 99285

== ENCOUNTER → 2024-05-18 | Outpatient (CLI) | payer OTHER | END | disposition home or self-care (01) | LOC: LABPRL 10:14 | PROVIDERS: ATTEND Family Medicine | DX: E11.8 Type 2 diabetes mellitus with unspecified complications (principal) | CPT/HCPCS: 80053; 83036; 85025 ==

== ENCOUNTER → 2024-05-18 | Outpatient (CLI) | payer OTHER | END | disposition home or self-care (01) | LOC: LABPRL 12:30 | PROVIDERS: ATTEND Family Medicine | DX: E11.8 Type 2 diabetes mellitus with unspecified complications (principal) | CPT/HCPCS: 80053; 83036; 85025 ==

== ENCOUNTER 2024-07-28 05:58 | Day surgery (SDC) | payer OTHER ==
[2024-07-28] MEDS ORDERED: ZOLPIDEM 5 MG TAB PO PRN (05:59)
[2024-07-28] MEDS ORDERED: HEPARIN SODIUM,PORCINE 10,000 UNIT in SODIUM CHLORIDE 0.9% 1,000 ML IRRIGATION PRN (05:59)
[2024-07-28] MEDS ORDERED: ALPRAZolam 0.5 MG TAB PO PRN (05:59)
[2024-07-28] MEDS ORDERED: ALPRAZolam 0.25 MG TAB PO PRN (05:59)
[2024-07-28] MEDS ORDERED: HEPARIN SODIUM,PORCINE (1 ML) 2,500 UNIT in SODIUM CHLORIDE 0.9% 250 ML IRRIGATION PRN (05:59)
[2024-07-28 06:39] LABS: Glucose,Whole Blood 429 mg/dL (70-110)
[2024-07-28] MEDS: SODIUM CHLORIDE 0.9% 1,000 ML IV ONE (06:39)
[2024-07-28 06:44] VITALS: RESP 16; TEMP 97.9
[2024-07-28] MEDS: EMPTY BAG 1 BAG with SODIUM CHLORIDE 0.9% 1,000 ML IV SCH (06:47)
[2024-07-28] MEDS: INSULIN ASPART (NovoLOG) 100 UNIT/ML VIAL SQ ONE (06:49)
[2024-07-28 07:00] LABS: Basophils % (A) 1 %; Eosinophils # (A) 0.1 k/uL (0-0.7); Eosinophils % (A) 2 %; HCT 33.6 % (39.0-53.0); HGB 11.3 gm/dL (13.0-17.5); Lymphocytes # (A) 2.7 k/uL (1.0-4.8); Lymphocytes % (A) 41 %; MCH 31.8 pg (25.0-35.0); MCHC 33.7 g/dL (31.0-37.0); MCV 94.3 fL (80.0-100.0); Mean Platelet Volume 10.9; Monocytes # (A) 0.4 k/uL (0-1.0); Monocytes % (A) 5 %; Neutrophils # (A) 3.3 k/uL (1.3-7.7); Neutrophils % (A) 50 %; Platelet Count 188 k/uL (150-450); RBC 3.56 m/uL (4.30-5.90); RDW 14.2 % (11.5-15.5); WBC 6.6 k/uL (3.8-10.6)
[2024-07-28 07:14] LABS: African American GFR (CKD) 62 (>60 ml/min/1.73 sqM); Anion Gap 6 mmol/L; Blood Urea Nitrogen 40 mg/dL (9-20); Calcium 8.8 mg/dL (8.4-10.2); Carbon Dioxide 26 mmol/L (22-30); Chloride 100 mmol/L (98-107); Glucose 461 mg/dL (74-99); Non-African American GFR(CKD) 53 (>60 ml/min/1.73 sqM); Potassium 4.9 mmol/L (3.5-5.1); Sodium 132 mmol/L (137-145)
[2024-07-28] MEDS: HEPARIN SODIUM,PORCINE 10,000 UNIT in SODIUM CHLORIDE 0.9% 1,000 ML IRRIGATION ONE (07:27)
[2024-07-28] MEDS: fentaNYL (PF) 50 MCG/ML 2 ML AMP IVP ONE (07:34)
[2024-07-28] MEDS: MIDAZOLAM 2 MG/2 ML VIAL IVP ONE (07:34)
[2024-07-28] MEDS: LIDOCAINE 1% INJ 10MG/ML (20 ML MDV) SQ ONE (07:41)
[2024-07-28] MEDS: IOPAMIDOL-250 100ML BTL INTRAARTER ONE (07:49)
--- NOTE | 2024-07-28 08:09 | P.OP ---
Date of Procedure: 07/28/24 Description of Procedure: Preoperative diagnosis: Right lower extremity chronic toe wound, peripheral arterial disease Postop diagnosis: Same, tibioperoneal trunk calcification stenosis roughly 50% Procedure: Aortogram with selective right lower extremity runoff via left common femoral artery access under ultrasound guidance Surgeon: Nestor Anesthesia: Moderate sedation times 15 minutes Estimated blood loss: 5cc Complications: None Condition: Stable Findings: Aorta: Patent with dense calcification throughout without any evidence of stenosis Iliacs: Bilateral common, internal and external iliac arteries are patent with no significant stenosis. Femorals: Right common, profundus femoris and superficial femoral artery are patent with out evidence of significant stenosis. Dense calcification noted lining the vessels. Popliteal: Right popliteal artery is patent without significant stenosis Tibials: Tibioperoneal trunk has a large calcific plaque at the bifurcation causing roughly 50% stenosis of both the anterior tibial and tibioperoneal trunk. Two-vessel runoff to the ankle which is substantial Operative narrative: After written informed consent was obtained the patient all risks benefits competitions were described the patient is brought to the Regional Geodetic Advisor and laid in a supine position. The area of the left groin was prepped and draped in the usual sterile fashion. Local anesthesia with moderate sedation was performed with continuous pulse ox monitoring and EKG monitoring. Utilizing ultrasound the left femoral artery was visualized and shown to be patent without any significant plaque. Utilizing a multipurpose needle under ultrasound guidance the artery was accessed. Guidewire was placed followed by 5 Frisian sheath. 035 Glidewire was then placed into the aorta followed by rbi catheter. Angiogram was then obtained of the aorta. Catheter was then placed into the right common iliac artery and lower extremity runoff was obtained. Once completed all guidewires, catheters and sheaths were removed, Vascade device was placed and pressure was placed for hemostasis. Patient tolerated procedure well was sent to PACU for recovery. Due to the calcific disease at the branch point decision was made to forego any balloon angioplasty at this time secondary to brisk flow down past this point. There is significant disease but the risk of dissection or occluding the branch point is high and he has been having improvement with his wound and therefore we will continue to monitor. If at some point his wound does not heal then he may benefit from either an endarterectomy at the tibioperoneal trunk versus kissing balloon. He will follow-up in the office in 2 weeks.
--- NOTE | 2024-07-28 08:16 | IR ---
EXAMINATION TYPE: IR angio abdominal w runoff DATE OF EXAM: 07/28/2024 COMPARISON: NONE HISTORY: Fluoroscopy time. Fluoroscopy was provided to the referring clinician. [facility], , 07/28/2024 8:14 AM
[2024-07-28 08:21] LABS: Glucose,Whole Blood 399 mg/dL (70-110)
[2024-07-28 10:17] VITALS: PULSE 72
[2024-07-28 12:13] VITALS: BP 148/72
[2024-07-28] MEDS ORDERED: INSULIN ASPART (NovoLOG) 100 UNIT/ML VIAL SQ SCH (12:30)
== END 2024-07-28 11:12 | disposition home or self-care (01) ==
LOC: CATHCVL 05:58
PROVIDERS: ATTEND Surgery
CPT/HCPCS: 36246; 75625; 75710; 80048; 85025